=== PATIENT | male | born 1940 | race Caucasian/White ===

== ENCOUNTER 2017-06-08 05:04 | Emergency (ER) | payer MEDICARE ==
[2017-06-08] MEDS ORDERED: traMADol TAB* 50 MG PO ONE (06:32)
[2017-06-08] MEDS ORDERED: Carisoprodol TAB* 350 MG PO ONE (06:32)
[2017-06-08 07:11] VITALS: BP 110/50
--- NOTE | 2017-06-08 07:38 | ED ---
Jen Holland SooYoung, scribed for Lucas Grady MD on 06/08/17 at 0607 . Shortness of Breath - HPI Summary HPI Summary: A 76 y/o M with several co-morbidities presents to ED with c/o RUE pain, weakness and R-handed numbness ongoing for past few days. Associated sx: bilat neck pain onset today, SOB, dyspnea with exertion, mild nausea. Denies cough, CP , fall, trauma. Pt is on home O2. He took one hydrocodone to mild relief. Extremity pain has been preventing him from sleeping. 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 Pt denies taking pain medications. PCP is Dr. Haines. Takes daily aspirin. - History of Current Complaint Chief Complaint: EDShortnessOfBreath Time Seen by Provider: 06/08/17 05:46 Hx Obtained From: Patient Onset/Duration: Lasting Days Timing: Constant Dyspnea At: Exertion Aggrevating Factors: Movement - exertion - Allergy/Home Medications Allergies/Adverse Reactions: Allergies Allergy/AdvReac Type Severity Reaction Status Date / Time Oxycodone Allergy Severe See Comment Verified 07/04/16 11:18 Hydralazine Allergy Unknown UNK Verified 07/04/16 11:18 Isosorbide Nitrate Allergy Unknown UNK Verified 07/04/16 11:18 [Isosorbide] Prednisone Allergy Unknown Verified 07/04/16 11:18 Reaction Details Statins Allergy Rash Verified 06/08/17 05:13 Sulfamethoxazole Allergy Unknown Verified 07/04/16 11:18 w/Trimethoprim Reaction [From Bactrim] Details Clindamycin AdvReac Intermediate Nausea And Verified 07/04/16 11:18 Vomiting Erythromycin AdvReac Intermediate Nausea Verified 07/04/16 11:18 Atorvastatin [From Lipitor] AdvReac Unknown Dizziness Verified 07/04/16 11:18 Cephalexin [From Keflex] AdvReac Nausea And Verified 07/04/16 11:18 Vomiting Home Medications: Home Medications Amiodarone HCl [Amiodarone HCl-] 100 mg PO DAILY 06/08/17 [History Confirmed 06/16] Ferrous Sulfate TAB* 325 mg PO BID 06/08/17 [History Confirmed 06/08/17] Hydrocodone-Acetaminophen [Hydrocodone/Acetaminophen 5-325 mg] 1 tab PO BID PRN 06/08/17 [History Confirmed 06/08/17] Mexiletine CAP* [Mexitil CAP*] 200 mg PO BID 06/08/17 [History Confirmed ] PMH/Surg Hx/FS Hx/Imm Hx Previously Healthy: No Endocrine/Hematology History: Reports: Hx Diabetes - "borderline" - no medication, Hx Thyroid Disease - hyperthyroid Denies: Hx Anticoagulant Therapy, Hx Anemia Cardiovascular History: Reports: Hx Auto Implanted Cardiovert Defib, Hx Congestive Heart Failure - EF 25%, Hx Hypertension, Hx Pacemaker/ICD, Other Cardiovascular Problems/Disorders - CARDIOMYOPATHY, VENTRICULAR TECHYCARDIA, pleural effusions Denies: Hx Cardiac Arrest, Hx Congenital Heart Disease, Hx Deep Vein Thrombosis, Hx Embolism Respiratory History: Reports: Hx Chronic Obstructive Pulmonary Disease (COPD) - HOME O2 @ 3L NC, Hx Pleural Effusion, Hx Sleep Apnea, Other Respiratory Problems /Disorders - SLEEP APNEA Denies: Hx Asthma GI History: Reports: Hx Hiatal Hernia, Other GI Disorders - POLPYS Denies: Hx Cirrhosis, Hx Crohn's Disease, Hx Diverticulosis, Hx Gall Bladder Disease, Hx Gastroesophageal Reflux Disease, Hx Gastrointestinal Bleed, Hx Jaundice History: Reports: Hx Benign Prostatic Hyperplasia, Hx Chronic Renal Failure, Hx Kidney Infection, Hx Renal Disease, Other Problems/Disorders - EPIDYDIMITIS Musculoskeletal History: Reports: Hx Arthritis, Hx Gout Sensory History: Reports: Hx Contacts or Glasses Denies: Hx Glaucoma, Hx Legally Blind, Hx Macular Degeneration, Hx Deafness, Hx Hearing Aid, Other Sensory Impairments Opthamlomology History: Reports: Hx Contacts or Glasses Denies: Hx Glaucoma, Hx Legally Blind, Hx Macular Degeneration, Other Sensory Impairments Neurological History: Reports: Other Neuro Impairments/Disorders - CERVICAL SPONDALOSIS Denies: Hx Dementia, Hx Seizures Psychiatric History: Reports: Hx Anxiety, Hx Depression Denies: Hx Attention Deficit Hyperactivity Disorder, Hx Eating Disorder, Hx Inpatient Treatment, Hx Community Mental Health Tx, Hx Bipolar Disorder, Hx Substance Abuse - Cancer History Cancer Type, Location and 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 - Surgical History Surgery Procedure, Year, and Place: pacer/defibrillator; thoracentesis 2015 Hx Anesthesia Reactions: No - Immunization History Date of Tetanus Vaccine: Unk Date of Influenza Vaccine: 08/14 Infectious Disease History: No Infectious Disease History: Denies: Hx Hepatitis, Hx Human Immunodeficiency Virus (HIV), Hx of Known/ Suspected MRSA, Traveled Outside the [place] in Last 30 Days - Family History Known Family History: Positive: Cardiac Disease, Diabetes - Social History Occupation: Disabled Lives: Alone Alcohol Use: Occasionally Hx Substance Use: No Substance Use Type: Reports: None Hx Tobacco Use: Yes Smoking Status (MU): Former Smoker Type: Cigarettes Review of Systems Negative: Chest Pain Positive: Shortness Of Breath, Other - dyspnea with exertion. Negative: Cough Positive: Nausea - mild Positive: Other - pos: pain in RUE, neck pain Positive: Weakness - R hand, Numbness - in RUE/R hand All Other Systems Reviewed And Are Negative: Yes Physical Exam - Summary Physical Exam Summary: The patient is well-nourished in no acute distress and in no acute pain. The skin is warm and dry and skin color reflects adequate perfusion. HEENT: The head is normocephalic and atraumatic. The pupils are equal and reactive. The conjunctivae are clear and without drainage. Nares are patent and without drainage. Mouth reveals moist mucous membranes and the throat is without erythema and exudate. The external ears are intact. The ear canals are patent and without drainage. The tympanic membranes are intact. Neck is supple but tender with full range of motion. No nuchal rigidity. There are no carotid bruits. There is no neck vein distension. Respiratory: Chest is non-tender. Lungs are clear to auscultation and breath sounds are symmetrical and equal. Cardiovascular: Hear is regular rate and rhythm. There is no murmur or rub auscultated. There is no peripheral edema and pulses are symmetrical and equal. Abdomen: The abdomen is soft and non-tender. There are normal bowel sounds heard in all four quadrants and there is no organomegaly palpated. Musculoskeletal: There is no back pain noted. Extremities are non-tender with full range of motion except R wrist which is tender, but without swelling, and has FROM. Weakness in LUE more than RUE, no weakness noted in RUE. There is good capillary refill. There is no peripheral edema or calf tenderness elicited. Good light touch sensation. Neurological: Patient is alert and oriented to person, place and time. The patient has symmetrical motor strength in all four extremities. Cranial nerves are grossly intact. Deep tendon reflexes are symmetrical and equal in all four extremities. Psychiatric: The patient has an appropriate affect and does not exhibit any anxiety or depression. Triage Information Reviewed: Yes Vital Signs On Initial Exam: Initial Vitals Temp Pulse Resp BP Pulse Ox 97.4 F 70 18 118/63 98 06/08/17 05:09 06/08/17 05:09 06/08/17 05:09 06/08/17 05:09 06/08/17 05:09 Vital Signs Reviewed: Yes Diagnostics - Vital Signs Vital Signs Temp Pulse Resp BP Pulse Ox 06/08/17 05:30 69 108/56 100 06/08/17 05:26 69 97 06/08/17 05:25 108/49 06/08/17 05:09 97.4 F 70 18 118/63 98 - Laboratory Lab Statement: Any lab studies that have been ordered have been reviewed, and results considered in the medical decision making process. Course/Dx - Course Course Of Treatment: Pt is a 76 y/o M with multiple co-morbidities presents to ED with c/o RUE pain, weakness and R-handed numbness ongoing for past few days. Associated sx: neck pain, SOB, dyspnea with exertion. Denies cough, CP, fall, trauma. Pt is on home O2. He took one hydrocodone to mild relief. 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 Pt denies taking pain medications. PCP is Dr. Haines. Pt given Soma and Ultram in ED. - Diagnoses Differential Diagnosis/HQI/PQRI: Positive: Other - cervical neuropathy Provider Diagnoses: Right arm pain Discharge - Discharge Plan Condition: Stable Disposition: HOME Prescriptions: Carisoprodol TAB* [Soma TAB*] 350 mg PO TID PRN #30 tab MDD 3 PRN Reason: Pain traMADol TAB* [Ultram*] 50 mg PO Q6HR PRN #20 tab MDD 4 PRN Reason: pain Patient Education Materials: Carisoprodol (By mouth), Tramadol (By mouth), Arm Pain (ED) Referrals: Javi Haines MD [Primary Care Provider] - 3 Days Additional Instructions: Follow up with your primary care provider in the next three days. Please return to the ED if you experience new or worsening symptoms. The documentation as recorded by the Jen munson SooYoung accurately reflects the service I personally performed and the decisions made by me, Lucas Grady MD.
== END 2017-06-08 06:55 | disposition home or self-care (01) ==
LOC: ED 05:04
DX: M79.601 Pain in right arm (principal); E05.90 Thyrotoxicosis, unspecified without thyrotoxic crisis or storm; R73.03 Prediabetes; Z95.810 Presence of automatic (implantable) cardiac defibrillator; I50.9 Heart failure, unspecified; I10 Essential (primary) hypertension; J44.9 Chronic obstructive pulmonary disease, unspecified; M19.90 Unspecified osteoarthritis, unspecified site; F41.8 Other specified anxiety disorders; Z87.891 Personal history of nicotine dependence
CPT/HCPCS: 99283; A9270-GY

== ENCOUNTER 2017-06-12 04:45 | Emergency (ER) | payer MEDICARE ==
[2017-06-12] MEDS ORDERED: NS 0.9% 1000 ML* 1,000 ML IV SCH (05:15)
[2017-06-12 05:47] LABS: Hematocrit 28 % (42-52); Hemoglobin 9.6 g/dl (14.0-18.0); Mean Corpuscular HGB Conc 34 g/dl (31-36); Mean Corpuscular Hemoglobin 31 pg (27-31); Mean Corpuscular Volume 92 fL (80-94); Mean Platelet Volume 9 um3 (7.4-10.4); Red Blood Count 3.08 10^6/ul (4.0-5.4); Red Cell Distribution Width 17 % (10.5-15)
[2017-06-12 05:57] LABS: Digoxin 0.7 ng/ml (0.8-2.0)
[2017-06-12 05:59] LABS: ALT 57 U/L (7-52); Alkaline Phosphatase 137 U/L (34-104); BUN/Creatinine Ratio 24.3 (8-20); Blood Urea Nitrogen 63 mg/dL (6-24); C Reactive Protein 91.99 mg/L (< 5.00); CO2 Carbon Dioxide 27 mmol/L (22-32); Calcium 8.7 mg/dL (8.6-10.3); Chloride 96 mmol/L (101-111); EGFR African American 31.1 (>60); EGFR Non-African American 24.2 (>60); Globulin 3.4 g/dL (2-4); Glucose 90 mg/dL (70-100); Lipase 14 U/L (11.0-82.0); Sodium 132 mmol/L (133-145); Total Protein 6.4 g/dL (6.4-8.9)
[2017-06-12 06:06] LABS: Troponin I 0.04 ng/mL (<0.04)
[2017-06-12 06:12] LABS: Anion Gap 9 mmol/L (2-11)
--- NOTE | 2017-06-12 08:21 | RAD ---
Indication: Shortness of breath. Cardiomyopathy with 25% LEFT ventricular ejection fraction. On home oxygen. Sleep apnea. Tobacco use. Comparison: June 12, [address] August 24, 2016 chest radiograph, July 04, [address] Technique: Upright AP 0613 hours Report: Pleural parenchymal scarring at the periphery of the RIGHT mid to lower lung zone. Mild RIGHT basilar subsegmental atelectasis. Eventration of the anterior portion of the RIGHT hemidiaphragm accounts for volume loss. Small calcified granuloma at the periphery of the RIGHT upper lung zone. No suspicious focal pulmonary lesions. LEFT suprahilar lung vessel viewed on end noted. Negative for pneumothorax. RIGHT atrial, RIGHT ventricular, and coronary sinus level pacemaker leads. Unchanged cardiomegaly. Unremarkable central pulmonary vasculature and mediastinal contours. IMPRESSION: 1. Cardiomegaly without compelling evidence for pulmonary edema. 2. Moderate RIGHT basilar atelectasis with parenchymal scarring and eventration of the anterior portion of the RIGHT hemidiaphragm accounting for volume loss.
--- NOTE | 2017-06-12 08:26 | RAD ---
CLINICAL HISTORY: Abdominal pain, constipation, difficulty controlling urine COMPARISON: July 01, 2015 TECHNIQUE: Multiple contiguous axial CT scans were obtained of the abdomen and pelvis, without intravenous contrast enhancement. Coronal and sagittal multiplanar reformations are submitted for review. Oral contrast was not administered. Additionally thin section images were obtained through the lumbar spine with coronal and sagittal multiplanar reformations. FINDINGS: The study is limited by the lack of intravenous contrast. This limits evaluation of the solid organs and vasculature. LUNG BASES: There is a trace right pleural effusion. There is a small pericardial effusion. LIVER: The liver is normal in shape, size, contour, and attenuation. BILE DUCTS: There is no intrahepatic or extrahepatic biliary dilatation. GALLBLADDER: The gallbladder is normal, without pericholecystic inflammatory change. PANCREAS: The pancreas is normal, without mass or ductal dilatation. SPLEEN: Normal in size and appearance. UPPER GI TRACT: Evaluation of the gastrointestinal tract is limited by incomplete gastric distention. The upper GI tract is unremarkable. SMALL BOWEL AND MESENTERY: The small bowel is normal in contour, course, and caliber. There is no obstruction or dilatation. COLON: There is large amount of stool within the colon. There is diverticulosis of the sigmoid colon without pericolonic inflammatory change. ADRENALS: There is lobulated left adrenal mass measuring 10 Hounsfield units in attenuation most consistent with an adrenal adenoma. This is similar to the previous examination. There is mild nodularity of the right adrenal gland. KIDNEYS: The kidneys are normal in shape, size, contour, and axis. There is no hydronephrosis or nephrolithiasis. BLADDER: The bladder is collapsed and is not well evaluated PELVIC ORGANS: The prostate is diffusely enlarged. The seminal vesicles are symmetric. AORTA: There is calcific atherosclerotic disease of the abdominal aorta and its branches, without aneurysmal dilatation IVC: Unremarkable LYMPH NODES: There is no lymphadenopathy by size criteria. ABDOMINAL WALL: There are bilateral fat-containing inguinal hernias. BONES AND SOFT TISSUES: Evaluation the central canal is limited on CT technique; however, there is no appreciable canalicular mass or epidural hemorrhage. 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 There is multilevel anterolateral marginal osteophyte formation. There is diffuse facet osteoarthritis. There is diffuse loss of intervertebral disc height. There is severe narrowing of the central canal at L4-L5 and L3-L4, with moderate narrowing at L1-L2, L5-S1, and T12-L1. There is moderate to severe neural foraminal narrowing throughout the lumbar spine with relative sparing of L1-L2. OTHER: None IMPRESSION: 1. SMALL PERICARDIAL EFFUSION. 2. TRACE RIGHT PLEURAL EFFUSION. 3. DIVERTICULOSIS. 4. STABLE LEFT ADRENAL ADENOMA. 5. ATHEROSCLEROSIS. 6. BILATERAL FAT-CONTAINING HERNIAS. 7. ENLARGED PROSTATE. 8. DEGENERATIVE DISC DISEASE AND OSTEOPOROSIS, WITH DIFFUSE NARROWING OF THE CENTRAL CANAL SECONDARY TO CONGENITALLY SHORT PEDICLES. THERE IS MORE FOCAL SEVERE NARROWING OF CENTRAL CANAL AT L3-L4 AND L4-L5. THERE IS MULTILEVEL NEURAL FORAMINAL NARROWING. THE APPEARANCE IS SIMILAR TO JULY 01, 2015
[2017-06-12] MEDS ORDERED: Ondansetron INJ* 2 MG/ML VIAL IV ONE (08:30)
--- NOTE | 2017-06-12 08:47 | RAD ---
INDICATION: Right arm pain, weakness, neck pain. COMPARISON: There are no prior studies available for comparison. TECHNIQUE: Contiguous axial sections were obtained from the skull base through the C7 vertebra. Images were reconstructed in the sagittal and coronal planes. FINDINGS: The vertebra are in normal alignment. No prevertebral soft tissue swelling or fracture is seen. At the C3-C4 level there is posterior uncinate process spurring associated with a mild broad-based disc bulge giving rise to mild to moderate spinal canal stenosis. There is moderate bilateral neural foraminal narrowing. At the C4-C5 level there is posterior endplate spurring and calcification likely within the posterior longitudinal ligament. There is a small central disc protrusion. There appears to be moderate spinal canal narrowing. There is moderate neural foraminal narrowing on the right side and mild neural foraminal narrowing on the left side. At the C5-C6 level there is posterior endplate spurring associated with a broad-based disc bulge. There is moderate to severe spinal canal narrowing and moderate bilateral neural foraminal narrowing. At the C6-C7 level there is mild posterior uncinate process spurring. There appears be mild spinal canal narrowing and moderate to severe bilateral neural foraminal narrowing. IMPRESSION: 1. NO EVIDENCE FOR FRACTURE OR SUBLUXATION. 2. MODERATE TO CERVICAL SPONDYLOSIS CAUSING MODERATE TO SEVERE SPINAL CANAL NARROWING AT THE C4-C5 AND C5-C6 LEVELS. RECOMMEND MR IMAGING FOR FURTHER EVALUATION TO EXCLUDE SPINAL CORD COMPRESSION.
[2017-06-12 12:36] VITALS: BP 118/64
--- NOTE | 2017-06-12 15:50 | ED ---
Zoltan Holland Angela, scribed for Lucas Grady MD on 06/12/17 at 0725 . Progress - Progress Note Progress Note: Pt is a 76 y/o male presenting to the ED c/o constipation and bloating x4 days. This pt was a signed out from Dr. Frias, pending disposition, awaiting CT abdomen/pelvis, CT cervical spine, CT lumbar spine. CT abdomen/pelvis reveals Moderate to large amount of diffuse solid stool without bowel obstruction or inflammation. Stable adrenal lesion suspect the visual adenomas. CT cervical spine shows No fracture. Moderate central canal narrowing at the C4-5 and C5-6 levels due to bulging disc osteophyte complexes. Suggest MRI for further evaluation to exclude cord compression. Pt will be discharged to home in stable condition with a dx of constipation and degenerative disc disease. - Results/Orders Results/Orders: CT cervical spine IMPRESSION: No fracture. Moderate central canal narrowing at the C4-5 and C5-6 levels due to bulging disc osteophyte complexes. Suggest MRI for further evaluation to exclude cord compression. ED physician has reviewed this radiology report and agrees. CT abdomen/pelvis IMPRESSION: Moderate to large amount of diffuse solid stool without bowel obstruction or inflammation. Stable adrenal lesion suspect the visual adenomas. ED physician has reviewed this radiology report and agrees. CT lumbar spine IMPRESSION: 1. Small pericardial effusion 2. Trace right pleural effusion. 3. Diverticulosis 4. Stable left adrenal adenoma. 5. Atherosclerosis 6. Bilateral fat-containing hernias. 7. Enlarged prostate 8. Degenerative disc disease and osteoporosis, with diffuse narrowing of the central canal secondary to congenitally short pedicles. There is more focal severe narrowing central canal at L3-L4 and L4-L5. There is multilevel neural foraminal narrowing. The appearance is similar to July 01, 2015 ED physician has reviewed this radiology report and agrees. - Additional EKG/XRAY/Consults Comments: 0720 - EKG shows a paced rhythm Re-Evaluation - Re-Evaluation First Eval Re-Evaluation Time: 08:53 Comment: I reviewed the CT results with the pt. Second Eval Re-Evaluation Time: 09:45 Comment: Pt had a bowel movement. He is not ready to be discharged yet. Third Eval Re-Evaluation Time: 11:26 Comment: Pt is ready to be discharged home. Course/Dx - Course Course Of Treatment: Pt will be discharged to home in stable condition with a dx of constipation and degenerative disc disease. pt had a soap suds enema with moderate relief of his constipation. pt did request hydration and was administered one liter of normal saline - Diagnoses Provider Diagnoses: Constipation, Degenerative disc disease The documentation as recorded by the Zoltan munson Angela accurately reflects the service I personally performed and the decisions made by me, Lucas Grady MD.
--- NOTE | 2017-06-16 11:28 | ED ---
Mirian Holland Kyle, scribed for Mu Frias MD on 06/16/17 at 1128 . Abdominal Pain/Male - HPI Summary HPI Summary: This is a 76 yo male presenting to the ED w/ c/o of constipation and bloating that began 4 days ago. He reports that he has been taking a muscle relaxant and soma for his chronic neck pain for the past 4 days. He reports his last dose of pain medication was at least 24 hours ago. He has tried a laxative for the past 4 days without any relief of his bloated state and associated constipation. He also reports a decreased appetite. His last bowel movement was yesterday morning which he reports was bloody, hard and small in quantity. He reports the blood was bright red clots, mixed with the small amount of stool there was. His stool was black, but reports he has been taking Iron. He notes that he has also been incontinent of urine since being placed on the muscle relaxant. He also reports shortness of breath which has been acutely worse over the past 48 hours. - History of Current Complaint Stated Complaint: CONSTIPATION/POS GI BLEED Time Seen by Provider: 06/12/17 04:47 Hx Obtained From: Patient Onset/Duration: Gradual Onset Timing: Constant Severity Initially: Moderate Severity Currently: Moderate Aggravating Factor(s): Nothing Alleviating Factor(s): Nothing Associated Signs And Symptoms: Positive: Constipation - Allergies/Home Medications Allergies/Adverse Reactions: Allergies Allergy/AdvReac Type Severity Reaction Status Date / Time Oxycodone Allergy Severe See Comment Verified 06/12/17 05:00 Hydralazine Allergy Unknown UNK Verified 06/12/17 05:00 Isosorbide Nitrate Allergy Unknown UNK Verified 06/12/17 05:00 [Isosorbide] Prednisone Allergy Unknown Verified 06/12/17 05:00 Reaction Details Statins Allergy Rash Verified 06/12/17 05:00 Sulfamethoxazole Allergy Unknown Verified 06/12/17 05:00 w/Trimethoprim Reaction [From Bactrim] Details Clindamycin AdvReac Intermediate Nausea And Verified 06/12/17 05:00 Vomiting Erythromycin AdvReac Intermediate Nausea Verified 06/12/17 05:00 Atorvastatin [From Lipitor] AdvReac Unknown Dizziness Verified 06/12/17 05:00 Cephalexin [From Keflex] AdvReac Nausea And Verified 06/12/17 05:00 Vomiting PMH/Surg Hx/FS Hx/Imm Hx Endocrine/Hematology History: Reports: Hx Diabetes - "borderline" - no medication, Hx Thyroid Disease - hyperthyroid Denies: Hx Anticoagulant Therapy, Hx Anemia Cardiovascular History: Reports: Hx Auto Implanted Cardiovert Defib, Hx Congestive Heart Failure - EF 25%, Hx Hypertension, Hx Pacemaker/ICD, Other Cardiovascular Problems/Disorders - CARDIOMYOPATHY, VENTRICULAR TECHYCARDIA, pleural effusions Denies: Hx Cardiac Arrest, Hx Congenital Heart Disease, Hx Deep Vein Thrombosis, Hx Embolism Respiratory History: Reports: Hx Chronic Obstructive Pulmonary Disease (COPD) - HOME O2 @ 3L [place], Hx Pleural Effusion, Hx Sleep Apnea, Other Respiratory Problems /Disorders - SLEEP APNEA Denies: Hx Asthma GI History: Reports: Hx Hiatal Hernia, Other GI Disorders - POLPYS Denies: Hx Cirrhosis, Hx Crohn's Disease, Hx Diverticulosis, Hx Gall Bladder Disease, Hx Gastroesophageal Reflux Disease, Hx Gastrointestinal Bleed, Hx Jaundice History: Reports: Hx Benign Prostatic Hyperplasia, Hx Chronic Renal Failure, Hx Kidney Infection, Hx Renal Disease, Other Problems/Disorders - EPIDYDIMITIS Musculoskeletal History: Reports: Hx Arthritis, Hx Gout Sensory History: Reports: Hx Contacts or Glasses Denies: Hx Glaucoma, Hx Legally Blind, Hx Macular Degeneration, Hx Deafness, Hx Hearing Aid, Other Sensory Impairments Opthamlomology History: Reports: Hx Contacts or Glasses Denies: Hx Glaucoma, Hx Legally Blind, Hx Macular Degeneration, Other Sensory Impairments Neurological History: Reports: Other Neuro Impairments/Disorders - CERVICAL SPONDALOSIS Denies: Hx Dementia, Hx Seizures Psychiatric History: Reports: Hx Anxiety, Hx Depression Denies: Hx Attention Deficit Hyperactivity Disorder, Hx Eating Disorder, Hx Inpatient Treatment, Hx Community Mental Health Tx, Hx Bipolar Disorder, Hx Substance Abuse - Cancer History Cancer Type, Location and 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 - Surgical History Surgery Procedure, Year, and Place: pacer/defibrillator; thoracentesis 2014 Hx Anesthesia Reactions: No - Immunization History Date of Tetanus Vaccine: Unk Date of Influenza Vaccine: 08/14 Infectious Disease History: Denies: Hx Hepatitis, Hx Human Immunodeficiency Virus (HIV), Hx of Known/ Suspected MRSA - Family History Known Family History: Positive: Cardiac Disease, Diabetes - Social History Alcohol Use: Occasionally Hx Substance Use: No Substance Use Type: Reports: None Hx Tobacco Use: Yes Smoking Status (MU): Former Smoker Type: Cigarettes Review of Systems Negative: Fever, Chills Negative: Chest Pain Positive: Shortness Of Breath Positive: Abdominal Pain, Other - constipation, bloody bowel movements. Negative: Vomiting, Nausea All Other Systems Reviewed And Are Negative: Yes Physical Exam - Summary Physical Exam Summary: General: well-appearing, no pain distress Skin: warm, color reflects adequate perfusion, dry Head: normal Eyes: EOMI, YOUNG ENT: normal Neck: supple, nontender Respiratory: CTA, breath sounds present Cardiovascular: RRR Abdomen: soft, nontender Bowel: present Musculoskeletal: normal, strength/ROM intact Neurological: normal, sensory/motor intact, A&O x3 Psychological: affect/mood appropriate Triage Information Reviewed: Yes Vital Signs On Initial Exam: Initial Vitals Temp Pulse Resp BP Pulse Ox 99 F 80 16 107/49 98 06/12/17 05:01 06/12/17 05:01 06/12/17 05:01 06/12/17 05:01 06/12/17 05:01 Vital Signs Reviewed: Yes Diagnostics - Vital Signs Vital Signs Temp Pulse Resp BP Pulse Ox 06/12/17 12:35 98.7 F 80 20 118/64 06/12/17 12:00 67 102/52 100 06/12/17 11:30 70 104/49 100 06/12/17 11:00 72 106/53 100 06/12/17 10:30 72 109/58 100 06/12/17 10:00 71 104/51 100 06/12/17 09:54 77 89 06/12/17 09:30 112/50 06/12/17 09:21 72 99 06/12/17 09:00 71 104/49 99 06/12/17 08:59 72 99 06/12/17 08:58 107/50 06/12/17 08:56 73 16 108/52 99 06/12/17 05:01 99 F 80 16 107/49 98 - Laboratory Lab Results: Lab Results 06/12/17 06/12/17 06/12/17 Range/Units 05:25 05:25 05:25 WBC (3.5-10.8) 10^3/ul RBC (4.0-5.4) 10^6/ul Hgb (14.0-18.0) g/dl Hct (42-52) % MCV (80-94) fL MCH (27-31) pg MCHC (31-36) g/dl RDW (10.5-15) % Plt Count (150-450) 10^3/ul MPV (7.4-10.4) um3 Neut % (Auto) (38-83) % Lymph % (Auto) (25-47) % [place] % (Auto) (1-9) % Eos % (Auto) (0-6) % Baso % (Auto) (0-2) % Absolute Neuts (auto) (1.5-7.7) 10^3/ul Absolute Lymphs (auto) (1.0-4.8) 10^3/ul Absolute Monos (auto) (0-0.8) 10^3/ul Absolute Eos (auto) (0-0.6) 10^3/ul Absolute Basos (auto) (0-0.2) 10^3/ul Absolute Nucleated RBC 10^3/ul Nucleated RBC % INR (Anticoag Therapy) 0.98 (0.89-1.11) APTT 27.7 (26.0-36.3) seconds Sodium 132 L (133-145) mmol/L Potassium TNP Chloride 96 L (101-111) mmol/L Carbon Dioxide 27 (22-32) mmol/L Anion Gap 9 (2-11) mmol/L BUN 63 H (6-24) mg/dL Creatinine 2.59 H (0.67-1.17) mg/dL Est GFR ( Amer) 31.1 (>60) Est GFR (Non-Af Amer) 24.2 (>60) BUN/Creatinine Ratio 24.3 H (8-20) Glucose 90 (70-100) mg/dL Lactic Acid (0.5-2.0) mmol/L Calcium 8.7 (8.6-10.3) mg/dL Total Bilirubin 1.30 H (0.2-1.0) mg/dL AST TNP ALT 57 H (7-52) U/L Alkaline Phosphatase 137 H (34-104) U/L Troponin I 0.04 H* (<0.04) ng/mL C-Reactive Protein 91.99 H (< 5.00) mg/L B-Natriuretic Peptide 611 H ( - 100) pg/mL Total Protein 6.4 (6.4-8.9) g/dL Albumin 3.0 L (3.2-5.2) g/dL Globulin 3.4 (2-4) g/dL Albumin/Globulin Ratio 0.9 L (1-3) Lipase 14 (11.0-82.0) U/L Digoxin 0.7 L (0.8-2.0) ng/ml 06/12/17 06/12/17 06/12/17 Range/Units 05:25 05:25 06:37 WBC 9.0 (3.5-10.8) 10^3/ul RBC 3.08 L (4.0-5.4) 10^6/ul Hgb 9.6 L (14.0-18.0) g/dl Hct 28 L (42-52) % MCV 92 (80-94) fL MCH 31 (27-31) pg MCHC 34 (31-36) g/dl RDW 17 H (10.5-15) % Plt Count 138 L (150-450) 10^3/ul MPV 9 (7.4-10.4) um3 Neut % (Auto) 85.8 H (38-83) % Lymph % (Auto) 6.2 L (25-47) % [place] % (Auto) 7.1 (1-9) % Eos % (Auto) 0.5 (0-6) % Baso % (Auto) 0.4 (0-2) % Absolute Neuts (auto) 7.7 (1.5-7.7) 10^3/ul Absolute Lymphs (auto) 0.6 L (1.0-4.8) 10^3/ul Absolute Monos (auto) 0.6 (0-0.8) 10^3/ul Absolute Eos (auto) 0 (0-0.6) 10^3/ul Absolute Basos (auto) 0 (0-0.2) 10^3/ul Absolute Nucleated RBC 0 10^3/ul Nucleated RBC % 0 INR (Anticoag Therapy) (0.89-1.11) APTT (26.0-36.3) seconds Sodium (133-145) mmol/L Potassium 4.8 Chloride (101-111) mmol/L Carbon Dioxide (22-32) mmol/L Anion Gap (2-11) mmol/L BUN (6-24) mg/dL Creatinine (0.67-1.17) mg/dL Est GFR ( Amer) (>60) Est GFR (Non-Af Amer) (>60) BUN/Creatinine Ratio (8-20) Glucose (70-100) mg/dL Lactic Acid 0.9 (0.5-2.0) mmol/L Calcium (8.6-10.3) mg/dL Total Bilirubin (0.2-1.0) mg/dL AST 32 ALT (7-52) U/L Alkaline Phosphatase (34-104) U/L Troponin I (<0.04) ng/mL C-Reactive Protein (< 5.00) mg/L B-Natriuretic Peptide ( - 100) pg/mL Total Protein (6.4-8.9) g/dL Albumin (3.2-5.2) g/dL Globulin (2-4) g/dL Albumin/Globulin Ratio (1-3) Lipase (11.0-82.0) U/L Digoxin (0.8-2.0) ng/ml Result Diagrams: 06/12/17 05:25 06/12/17 06:37 Diagnostic Studies Comment: HGB is lower than 3 months ago. Cr is stable. Troponin is elevated, but this chronic. CRP has been elevated in the past as well. BNP is also elevated, relatively higher than priors. Lab Statement: Any lab studies that have been ordered have been reviewed, and results considered in the medical decision making process. - Radiology CXR Xray Interpretation: Positive (See Comments) - Chronic R pleural effusion. Mild pulmonary vascular congestion. Radiology Interpretation Completed By: ED Physician Abdominal Pain Fem Course/Dx - Course Course Of Treatment: Disposition pending at shift change - Diagnoses Provider Diagnoses: Constipation, Degenerative disc disease Discharge - Discharge Plan Condition: Stable Disposition: OTHER Discharge Disposition Comment: Pending CTs - sign out to Dr. Grady. Patient Education Materials: Constipation (ED), Degenerative Disc Disease (ED) Referrals: Javi Haines MD [Primary Care Provider] - Additional Instructions: Please follow up with your primary care provider. The documentation as recorded by the Mirian munson Kyle accurately reflects the service I personally performed and the decisions made by , Mu Frias MD.
== END 2017-06-12 12:35 ==
LOC: ED 04:45
DX: K59.00 Constipation, unspecified (principal); M51.34 Other intervertebral disc degeneration, thoracic region; R06.2 Wheezing; R06.02 Shortness of breath; Z87.891 Personal history of nicotine dependence
CPT/HCPCS: 36415; 71010; 72125; 72131; 74176; 80053; 80162; 83605; 83690; 83880; 84484; 85025; 85610; 85730; 86140; 93005; 96361; 96374; 99284; J2405

== ENCOUNTER 2017-06-22 05:53 | Inpatient (IN) | payer MEDICARE ==
[2017-06-22] MEDS ORDERED: NS 0.9% 1000 ML* 1,000 ML IV ONE (06:16)
--- NOTE | 2017-06-22 06:47 | ED ---
Argelia Holland Rebecca, scribed for DavyJose on 06/22/17 at 0617 . Abdominal Pain/Male - HPI Summary HPI Summary: Pt is a 76 y/o M BIBA who presents to ED c/o abdominal pain and distention. Sx have been present for "several days." Associated pain is diffuse and and currently moderate, ranked 5/10. Sx aggravated and alleviated by nothing. Additionally c/o constipation and generalized weakness. Denies vomiting, fever, CP. Has tried drinking prune juice and taking an Rx from Dr. Haines for constipation which is not improving sx. Uses O2 at home. - History of Current Complaint Chief Complaint: EDAbdPain Stated Complaint: CONSTIPATION,WEAK Time Seen by Provider: 06/22/17 06:11 Hx Obtained From: Patient Onset/Duration: Lasting Days - "several" days, Still Present Severity Currently: Moderate Pain Intensity: 5 Pain Scale Used: 0-10 Numeric Location: Diffuse Radiates: No Aggravating Factor(s): Nothing Alleviating Factor(s): Nothing Associated Signs And Symptoms: Positive: Constipation, Other - abdominal distention. Negative: Fever, Chest Pain, Vomiting - Allergies/Home Medications Allergies/Adverse Reactions: Allergies Allergy/AdvReac Type Severity Reaction Status Date / Time Oxycodone Allergy Severe See Comment Verified 06/12/17 05:00 Hydralazine Allergy Unknown UNK Verified 06/12/17 05:00 Isosorbide Nitrate Allergy Unknown UNK Verified 06/12/17 05:00 [Isosorbide] Prednisone Allergy Unknown Verified 06/12/17 05:00 Reaction Details Statins Allergy Rash Verified 06/12/17 05:00 Sulfamethoxazole Allergy Unknown Verified 06/12/17 05:00 w/Trimethoprim Reaction [From Bactrim] Details Clindamycin AdvReac Intermediate Nausea And Verified 06/12/17 05:00 Vomiting Erythromycin AdvReac Intermediate Nausea Verified 06/12/17 05:00 Atorvastatin [From Lipitor] AdvReac Unknown Dizziness Verified 06/12/17 05:00 Cephalexin [From Keflex] AdvReac Nausea And Verified 06/12/17 05:00 Vomiting PMH/Surg Hx/FS Hx/Imm Hx Endocrine/Hematology History: Reports: Hx Diabetes - "borderline" - no medication, Hx Thyroid Disease - hyperthyroid Denies: Hx Anticoagulant Therapy, Hx Anemia Cardiovascular History: Reports: Hx Auto Implanted Cardiovert Defib, Hx Congestive Heart Failure - EF 25%, Hx Hypertension, Hx Pacemaker/ICD, Other Cardiovascular Problems/Disorders - CARDIOMYOPATHY, VENTRICULAR TECHYCARDIA, pleural effusions Denies: Hx Cardiac Arrest, Hx Congenital Heart Disease, Hx Deep Vein Thrombosis, Hx Embolism Respiratory History: Reports: Hx Chronic Obstructive Pulmonary Disease (COPD) - HOME O2 @ 3L [place], Hx Pleural Effusion, Hx Sleep Apnea, Other Respiratory Problems /Disorders - SLEEP APNEA Denies: Hx Asthma GI History: Reports: Hx Hiatal Hernia, Other GI Disorders - POLPYS Denies: Hx Cirrhosis, Hx Crohn's Disease, Hx Diverticulosis, Hx Gall Bladder Disease, Hx Gastroesophageal Reflux Disease, Hx Gastrointestinal Bleed, Hx Jaundice History: Reports: Hx Benign Prostatic Hyperplasia, Hx Chronic Renal Failure, Hx Kidney Infection, Hx Renal Disease, Other Problems/Disorders - EPIDYDIMITIS Musculoskeletal History: Reports: Hx Arthritis, Hx Gout Sensory History: Reports: Hx Contacts or Glasses Denies: Hx Glaucoma, Hx Legally Blind, Hx Macular Degeneration, Hx Deafness, Hx Hearing Aid, Other Sensory Impairments Opthamlomology History: Reports: Hx Contacts or Glasses Denies: Hx Glaucoma, Hx Legally Blind, Hx Macular Degeneration, Other Sensory Impairments Neurological History: Reports: Other Neuro Impairments/Disorders - CERVICAL SPONDALOSIS Denies: Hx Dementia, Hx Seizures Psychiatric History: Reports: Hx Anxiety, Hx Depression Denies: Hx Attention Deficit Hyperactivity Disorder, Hx Eating Disorder, Hx Inpatient Treatment, Hx Community Mental Health Tx, Hx Bipolar Disorder, Hx Substance Abuse - Cancer History Cancer Type, Location and 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 - Surgical History Surgery Procedure, Year, and Place: pacer/defibrillator; thoracentesis 2014 Hx Anesthesia Reactions: No - Immunization History Date of Tetanus Vaccine: Unk Date of Influenza Vaccine: 08/14 Infectious Disease History: Unable to Obtain/Confirm Infectious Disease History: Denies: Hx Hepatitis, Hx Human Immunodeficiency Virus (HIV), Hx of Known/ Suspected MRSA, Traveled Outside the [place] in Last 30 Days - Family History Known Family History: Positive: Cardiac Disease, Diabetes - Social History Alcohol Use: Occasionally Hx Substance Use: No Substance Use Type: Reports: None Hx Tobacco Use: Yes Smoking Status (MU): Former Smoker Type: Cigarettes Review of Systems Positive: Other - Generalized weakness. Negative: Fever Negative: Chest Pain Positive: Abdominal Pain - diffuse, Other - constipation, abdominal distention. Negative: Vomiting All Other Systems Reviewed And Are Negative: Yes Physical Exam - Summary Physical Exam Summary: Appearance: Well appearing, no pain distress Skin: warm, dry, reflects adequate perfusion Head/face: normal Eyes: EOMI, YOUNG ENT: normal Neck: supple, nontender Respiratory: CTA, breath sounds present Cardiovascular: RRR, pulses symmetrical Abdomen: diffuse abdominal pain, soft, distended Bowel: present Musculoskeletal: normal, strength/ROM intact Neuro: normal, sensory motor intact, A&Ox3 Triage Information Reviewed: Yes Vital Signs On Initial Exam: Initial Vitals Temp Pulse Resp BP Pulse Ox 98.3 F 77 12 100/47 100 06/22/17 06:00 06/22/17 06:00 06/22/17 06:00 06/22/17 06:00 06/22/17 06:00 Vital Signs Reviewed: Yes Diagnostics - Vital Signs Vital Signs Temp Pulse Resp BP Pulse Ox 06/22/17 06:00 98.3 F 77 12 100/47 100 - Laboratory Lab Statement: Any lab studies that have been ordered have been reviewed, and results considered in the medical decision making process. Abdominal Pain Fem Course/Dx - Course Assessment/Plan: Pt is a 76 y/o M BIBA who presents to ED c/o abdominal pain and distention for "several days." Associated pain is diffuse and and currently moderate, ranked 5/10. Additionally c/o constipation and generalized weakness. Denies vomiting, fever, CP. Has tried drinking prune juice and taking an Rx from Dr. Haines for constipation which is not improving sx. Uses O2 at home. In the ED course, pt receive fluids. Pt will be signed out, pending disposition, awaiting CT Abd/Pel. - Diagnoses Provider Diagnoses: Abdominal pain, Constipation Discharge - Discharge Plan Condition: Stable Disposition: OTHER Discharge Disposition Comment: Pt will be signed out, pending disposition, awaiting CT Abd/Pel Referrals: Javi Haines MD [Primary Care Provider] - The documentation as recorded by the Argelia munson Rebecca accurately reflects the service I personally performed and the decisions made by , Jose Bhatti.
[2017-06-22 07:24] LABS: Hematocrit 27 % (42-52); Hemoglobin 8.8 g/dl (14.0-18.0); Mean Corpuscular HGB Conc 33 g/dl (31-36); Mean Corpuscular Hemoglobin 31 pg (27-31); Mean Corpuscular Volume 93 fL (80-94); Mean Platelet Volume 9 um3 (7.4-10.4); Red Blood Count 2.86 10^6/ul (4.0-5.4); Red Cell Distribution Width 17 % (10.5-15); White Blood Count 7.2 10^3/ul (3.5-10.8)
[2017-06-22 07:36] LABS: ALT 15 U/L (7-52); AST 12 U/L (13-39); Albumin 3.1 g/dL (3.2-5.2); Alkaline Phosphatase 84 U/L (34-104); Anion Gap 8 mmol/L (2-11); BUN/Creatinine Ratio 22.6 (8-20); Blood Urea Nitrogen 63 mg/dL (6-24); CO2 Carbon Dioxide 30 mmol/L (22-32); Calcium 8.2 mg/dL (8.6-10.3); Chloride 93 mmol/L (101-111); EGFR African American 28.5 (>60); EGFR Non-African American 22.2 (>60); Globulin 3.4 g/dL (2-4); Glucose 120 mg/dL (70-100); Lipase < 10 U/L (11.0-82.0); Potassium 4.3 mmol/L (3.5-5.0); Sodium 131 mmol/L (133-145); Total Protein 6.5 g/dL (6.4-8.9)
[2017-06-22 07:38] LABS: Troponin I 0.03 ng/mL (<0.04)
[2017-06-22 09:55] LABS: Urine Bilirubin Negative (Negative); Urine Glucose Negative (Negative); Urine Nitrite Negative (Negative)
--- NOTE | 2017-06-22 09:55 | RAD ---
Edited for charges. INDICATION: Constipation, bloating. General weakness. COMPARISON: June 12, 2017 CT. TECHNIQUE: Multidetector CT images were obtained from the lung bases to the ischial tuberosities. Oral contrast administered. Assessment of the visceral limited without IV contrast. REPORT: Arms down positioning lowers image quality. Cardiomegaly. RIGHT atrial , RIGHT ventricular, and coronary sinus pacemaker leads. Physiologic small volume of pericardial fluid. Minimal pleural effusions. Unchanged pleural parenchymal scarring at the RIGHT lung base. 20 cm cephalocaudal liver. No focal hepatic lesions evident within limits of noncontrast exam. No CT abnormality of the gallbladder. Negative for biliary dilatation. Moderately atrophic pancreas. Enlarged 17.6 cm spleen. Negative for CT abnormality of the upper GI or small bowel. While the appendix is not discretely visualized, there is no inflammatory change in the right lower quadrant or region of the tip of the cecum to suggest presence of an acute inflammatory process. Moderate stool in the colon. Severe colonic diverticulosis most marked at the sigmoid colon without findings of acute diverticulitis. Negative for ascites, free air. Small fat-containing probable direct RIGHT inguinal hernia without inflammatory change. 2.7 x 3.2 cm LEFT adrenal nodule is grossly unchanged compared with the July 01, 2015 exam strongly favoring benign etiology. Foci of low density within the lesion favor a benign lipid rich adenoma. Unremarkable RIGHT adrenal gland. Moderate bilateral renal cortical atrophy. No suspicious focal renal lesions, stones, or hydronephrosis. Unremarkable ureters and partially distended urinary bladder. Enlarged prostate protrudes into the floor of the urinary bladder. Symmetric seminal vesicles. Negative for lymphadenopathy. Peripheral atherosclerotic calcification. Negative for aortoiliac aneurysm. Physiologic distention of the IVC. Polyarticular degenerative arthropathy. Negative for suspicious focal osseous lesions. IMPRESSION: 1. Cardiomegaly. Minimal bilateral pleural effusions with interval decrease. 2. Unchanged hepatosplenomegaly. 3. Severe colonic diverticulosis without findings of acute diverticulitis. Only moderate stool present in the colon. Negative for bowel obstruction. 4. Negative for ascites. 5. 2.7 x 3.2 cm LEFT adrenal nodule is likely benign given only minimal interval change compared with the July 01, 2015 exam. 6. Negative for lymphadenopathy. MTDD
[2017-06-22] MEDS ORDERED: Polyethylene Glycol 3350* 17 GM PACKET PO PRN (10:01)
[2017-06-22] MEDS ORDERED: Magnesium CITRATE* 300 ML BTL PO ONE (10:01)
--- NOTE | 2017-06-22 10:32 | RAD ---
Indication: Shortness of breath. Generalized weakness. Constipation. Chronic obstructive pulmonary disease on home oxygen. Comparison: Abdomen CT of the same date and July 04, [address] Technique: Upright AP 0935 hours Report: Cardiomegaly. RIGHT atrial, RIGHT ventricular, and coronary sinus level pacemaker leads. Mildly prominent central pulmonary vasculature with cephalization. Chronic RIGHT basilar pleural parenchymal scarring. Diffuse mild prominence of interstitial markings in the lower lung zones. Small RIGHT dependent pleural effusion based on correlation with abdomen CT. IMPRESSION: The constellation of findings favors mild pulmonary vascular congestion and interstitial edema. Minimal RIGHT pleural effusion.
[2017-06-22] MEDS ORDERED: Bisacodyl SUPP* 10 MG SUPP PR PRN (12:04)
[2017-06-22] MEDS ORDERED: Mineral Oil ENEMA* 1 BOTTLE PR PRN (12:04)
[2017-06-22] MEDS: Heparin VIAL(*) 5000 UNITS/ML VIAL (FIVE THOUSAND) SUBCUT SCH ×2 (14:28→22:44)
[2017-06-22] MEDS ORDERED: HYDROcodone/ACETAMIN 5-325 MG* 1 TAB PO PRN ×2 (20:35→20:38)
[2017-06-22] MEDS ORDERED: traMADol TAB* 50 MG PO PRN (20:35)
--- NOTE | 2017-06-22 22:23 | HP ---
CC: Dr. Haines* [facility] MEDICINE HISTORY AND PHYSICAL: DATE OF ADMISSION: 06/22/17 PRIMARY CARE PHYSICIAN: Dr. Haines. ATTENDING PHYSICIAN: Leonel Negrete M.D.* (dictation provided by Neva Grady NP) CHIEF COMPLAINT: Constipation and shortness of breath. HISTORY OF PRESENT ILLNESS: Mr. Carvalho is a 76-year-old male with a complex past medical history including ischemic cardiomyopathy with ejection fraction of 20% to 25%, chronic kidney disease stage 3, COPD, hyperthyroidism, and history of V-tach who presents to the hospital today with concern for constipation and shortness of breath. Mr. Carvalho states that his problems began when he had increased pain to his neck. He has a history of chronic pain in the neck with radiation down in to the arms. He states that this is secondary to bone spurs and that he is not a candidate for surgery. He was seen in the emergency room on 06/18/17. At that time, he was given Soma and tramadol and was encouraged to follow up with Dr. Haines. Per the patient's report, he did and it seems perhaps that the patient was given hydrocodone for pain relief. He was seen again in the ER on 06/12/17. Again, complaining of constipation and bloating and had not been responsive to laxatives at home. He had an abdomen and pelvis CT at that point, which showed no obstruction or significant constipation and he was discharged to home. I will note he did receive a cervical spine CT at that time, which showed moderate cervical spondylosis causing [id number] spinal canal narrowing at C4-5 and C5-6 levels. He also had a lumbar spine CT, which showed no other acute changes. The patient states that he has continued to take hydrocodone for pain and been working with Dr. Haines to alleviate his constipation. He states he did have a bowel movement 2 days ago and that seemed to relieve it a bit, but that he has had persistent abdominal distension and discomfort and that the pressure from his abdomen is making it difficult for him to breathe. He ultimately called the EMS , was brought back to the emergency room today. He has had no fevers, no chills. He has not been taking in much oral intake due to the feeling of fullness. He has had no chest pain. He has had shortness of breath. He has had no nausea or vomiting. In the emergency room, Mr. Carvalho had labs, which were basically consistent with previous showing a hemoglobin of 8.8, no leukocytosis. He has elevated BUN and creatinine, but they are at baseline. He has a normal troponin. Urine shows no evidence of infection. He went on for a repeat abdomen and pelvis CT, which showed only moderate stool. PAST MEDICAL HISTORY: 1. Chronic systolic congestive heart failure with last known EF of 20% to 25%, though the patient states it is improved since then. 2. CKD stage 3. 3. COPD. 4. Hyperthyroidism. 5. History of ventricular tachycardia with ICD. 6. Benign prostatic hypertrophy. 7. Gout. 8. Obstructive sleep apnea. 9. Psoriasis. 10. Cervical spondylosis. 11. History of squamous cell carcinoma. 12. Hypertension. 13. Hiatal hernia. 14. Depression. MEDICATIONS: Outpatient are: 1. Allopurinol 100 mg p.o. daily. 2. Amiodarone 100 mg p.o. daily. 3. Soma 350 mg p.o. t.i.d. 4. Carvedilol 12.5 mg p.o. b.i.d. 5. Digoxin 0.125 mg p.o. Saturday, Saturday, and Saturday. 6. Doxazosin 4 mg p.o. at bedtime. 7. Ferrous sulfate 325 mg p.o. b.i.d. 8. Finasteride 5 mg p.o. at bedtime. 9. Folic acid 1 mg p.o. daily. 10. Hydrocodone with acetaminophen 1 to 2 tablets p.o. q.6 hours p.r.n. 11. Ipratropium 0.03% nasally b.i.d. 12. Lactulose 10 g p.o. b.i.d. p.r.n. 13. Lisinopril 7.5 mg p.o. daily. 14. Methimazole 10 mg p.o. q.i.d. 15. Metolazone 2.5 mg p.o. daily as needed for weight gain and fluid overload. 16. Mexiletine 200 mg p.o. t.i.d. 17. Multivitamin with mineral 1 tab p.o. daily. 18. Spironolactone 12.5 mg p.o. Saturday, Saturday, and Saturday. 19. Torsemide 30 mg p.o. daily. 20. The patient thinks he is no longer on prednisone, but is listed per his pharmacy at 10 mg p.o. daily. 21. Tramadol 50 mg p.o. q.6 hours p.r.n. ALLERGIES: OXYCODONE, HYDRALAZINE, ISOSORBIDE, PREDNISONE, STATIN, SULFAMETHOXAZOLE with TRIMETHOPRIM, CLINDAMYCIN, ERYTHROMYCIN, ATORVASTATIN, and KEFLEX. FAMILY HISTORY: Mother at 78 from emphysema and heart failure. Father from gastric cancer. He has a sister, has a nonischemic cardiomyopathy and also has an LVAD. SOCIAL HISTORY: The patient lives alone. He quit smoking in 2010. He smoked for over 30 years. There was no report of alcohol use. He does not have a healthcare proxy. Code status is full code. REVIEW OF SYSTEMS: A 14-point review of systems was completed with Mr. Carvalho and all those not mentioned above were negative. PHYSICAL EXAMINATION GENERAL: Mr. Carvalho is lying in the bed. He is in no acute distress. VITAL SIGNS: Temperature 97.9, pulse rate 75, respiratory rate 20, O2 saturation 100% on 3.5 L nasal cannula, blood pressure 103/50. HEART: S1, S2. No murmur, rub, or gallop and regular. LUNGS: Actually clear bilaterally with no accessory muscle use and good aeration. ABDOMEN: Protuberant, it is soft. Bowel sounds are hyperactive. There is some minimal pain to palpation, but no rebound. No guarding. EXTREMITIES: +1 edema in the bilateral lower extremities. SKIN: Intact. NEURO: He is alert, he is oriented x3. He moves all extremities equally. There is no facial asymmetry or focal weakness. Extraocular movements are intact. LABORATORY DATA/DIAGNOSTIC STUDIES: WBC 7.2, hemoglobin 8.8, hematocrit 27, platelet count 176. INR 1.04. Sodium 131, potassium 4.3, chloride 93, serum bicarbonate 30, BUN 63, creatinine 2.79, glucose 120, lactic acid 0.8. Troponin 0.03, BNP 692, lipase less than 10. Urine shows no evidence of infection. Abdomen and pelvis CT from today is read as follows: "Cardiomegaly, minimal bilateral pleural effusions with interval decrease, unchanged hepatosplenomegaly , severe colonic diverticulosis without findings of acute diverticulitis, only moderate stool present in the colon. Negative for bowel obstruction. Negative for ascites. A 2.7 x 3.2 cm left adrenal nodule, it is likely benign given only minimal interval change compared with 07/01/2015 exam, negative for lymphadenopathy. ASSESSMENT: Mr. Carvalho is a 76-year-old male with complicated past medical history including an ischemic cardiomyopathy with last known ejection fraction here 20% to 25%, although the patient reports it has improved as well as hypertension, obstructive sleep apnea, V-tach with ICD who presents today to the hospital with concern for constipation and shortness of breath. Our plan is for observation in the hospital for the followin. Constipation: Again, there is no obstruction seen on the CT of the abdomen and only a moderate amount of stool. I plan to initiate an aggressive bowel regimen for him, which has already been started in the emergency room. The patient will have intravenous fluids. I suspect his constipation is related to his narcotic use and will limit that if possible, although the patient does have pain from his neck radiating into his right arm. 2. History of nonischemic cardiomyopathy: The patient does not appear to be in any acute failure at this point. He has minimal lower extremity edema, and I would suspect that he is actually a bit dehydrated. I plan to continue his home regimen of torsemide, and we will watch closely for any signs of fluid overload. 3. Anemia: baseline, monitor. 4. Acute kidney injury: baseline, plan to monitor. 5. Hyperthyroidism: Continue home medications. 6. Hypertension: Continue lisinopril with carvedilol. 7. Ventricular tachycardia: Continue amiodarone. 8. Depression: Continue sertraline. 9. DVT prophylaxis with heparin subcu. 10. Code status is full code. This was reviewed with the patient at the bedside. TIME SPENT: Approximately 60 minutes was spent on the admission of this patient , more than half the time spent with the patient at the bedside reviewing the events leading up to this hospitalization, performing the physical examination, and reviewing my plan of care. NEVA GRADY, RED [id number]/CPS #: [id number] SADAF
[2017-06-22] MEDS: MEXILETINE 200 MG PO SCH (22:43)
[2017-06-22] MEDS: Carvedilol TAB* 6.25 MG PO SCH (22:44)
[2017-06-22] MEDS: Ferrous Sulfate TAB* 325 MG PO SCH (22:44)
[2017-06-22] MEDS: Finasteride TAB* 5 MG PO SCH (22:44)
[2017-06-22] MEDS: Doxazosin TAB* 2 MG PO SCH (22:44)
[2017-06-22] MEDS: Methimazole TAB* 5 MG PO SCH (22:44)
[2017-06-23] MEDS: Heparin VIAL(*) 5000 UNITS/ML VIAL (FIVE THOUSAND) SUBCUT SCH ×3 (06:03→21:19)
[2017-06-23 07:13] LABS: Hematocrit 24 % (42-52); Hemoglobin 8.1 g/dl (14.0-18.0); Mean Corpuscular HGB Conc 34 g/dl (31-36); Mean Corpuscular Hemoglobin 31 pg (27-31); Mean Corpuscular Volume 92 fL (80-94); Mean Platelet Volume 8 um3 (7.4-10.4); Red Cell Distribution Width 17 % (10.5-15); White Blood Count 6.3 10^3/ul (3.5-10.8)
[2017-06-23 07:31] LABS: EGFR African American 31.5 (>60); EGFR Non-African American 24.5 (>60); Potassium 4.1 mmol/L (3.5-5.0)
--- NOTE | 2017-06-23 08:23 | PN ---
Subjective Date of Service: 06/23/17 Interval History: Mr. Carvalho has had a few small bowel movements but feels that his belly is still very distended and impeding his breathing. He denies other complaint. He denies chest pain. He denies nausea. He is tolerating oral intake well. He was noted to ambulate to the bathroom independently with his O2 though he was unsteady on his feet when initially trying to get up from the chair. Objective Active Medications: Hydrocodone Bitart/Acetaminophen ([place] 5-325 Tab*) 1 tab PO Q6H PRN Hydrocodone Bitart/Acetaminophen ([place] 5-325 Tab*) 2 tab PO Q4H PRN Allopurinol (Zyloprim Tab*) 100 mg PO DAILY FAY Amiodarone HCl (Cordarone Tab*) 100 mg PO DAILY FAY Bisacodyl (Dulcolax Supp*) 10 mg [place] DAILY PRN Carisoprodol (Soma Tab*) 350 mg PO TID PRN Carvedilol (Coreg Tab*) 12.5 mg PO BID FAY Digoxin (Lanoxin Tab*) 0.125 mg PO MOWEFR FAY Doxazosin Mesylate (Cardura Tab*) 4 mg PO BEDTIME FAY Ferrous Sulfate (Ferrous Sulfate Tab*) 325 mg PO BID FAY Finasteride (Proscar Tab*) 5 mg PO BEDTIME FAY Folic Acid (Folvite Tab*) 1 mg PO DAILY FAY Heparin Sodium (Porcine) (Heparin Vial(*)) 5,000 units SUBCUT Q8HR FAY Lactulose (Lactulose*) 30 ml PO TID PRN Lisinopril (Prinivil Tab*) 7.5 mg PO DAILY FAY Methimazole (Tapazole Tab*) 10 mg PO QID FAY Mexiletine HCl (Mexitil Cap*) 200 mg PO TID FAY Mineral Oil (Fleet Mineral Oil Enema*) 1 bottle AK DAILY PRN Multivitamins ( Vitamin Tab*) 1 tab PO DAILY FAY Polyethylene Glycol/Electrolytes (Miralax*) 17 gm PO DAILY PRN Spironolactone (Aldactone Tab*) 12.5 mg PO MOWEFR FAY Torsemide (Demadex*) 30 mg PO DAILY FAY Tramadol HCl (Ultram*) 50 mg PO Q12HR PRN Vital Signs: Temp Pulse Resp BP Pulse Ox 99.0 F 73 16 96/58 100 09/24/17 07:22 06/23/17 07:22 06/23/17 07:22 06/23/17 07:22 06/23/17 07:22 Oxygen Devices in Use Now: Nasal Cannula Appearance: Male sitting up in chair in NAD Eyes: No Scleral Icterus Ears/Nose/Mouth/Throat: Mucous Membranes Moist Neck: Trachea Midline Respiratory: Symmetrical Chest Expansion and Respiratory Effort, Clear to Auscultation Cardiovascular: NL Sounds; No Murmurs; No JVD, - - +1 edema B LEs Abdominal: NL Sounds; No Tenderness; No Distention Lymphatic: No Cervical Adenopathy Skin: No Rash or Ulcers Neurological: Alert and Oriented x 3, NL Muscle Strength and Tone Nutrition: Taking PO's Result Diagrams: 06/23/17 06:48 06/23/17 06:48 Assess/Plan/Problems-Billing Assessment: Mr. Carvalho is a 76 yo male with a PMH of ischemic cardiomyopathy and EF 25-30% who was admitted on 06/22/17 with SOB felt to be secondary to constipation with abdominal distention. - Patient Problems (1) Shortness of breath Comment: - Essentially unchanged. - No evidence of infection of CHF exacerbation. - Suspect secondary to abdominal distention with constipation from narcotics for neck pain. (2) Constipation Comment: - Having BMs but continues to feel that his abdomen is very distended. - Add simethicone to multi-drug cocktail to promote regular BMs in setting of narcotic use. (3) Cervical spondylitis Comment: - Intermittent chronic neck pain. - Imaging done shows severe narrowing at C4-5 and C5-6. Patient not a candidate for surgery given significant co-morbidities. - Continue pain meds, add routine bowel regimen. (4) Systolic CHF Comment: - Appears euvolemic. - Continue torsemide. (5) Hyperthyroidism Comment: - T4 and T3 low. - Decrease methimazole, patient to follow up with his mineral resources inspector at [place]. (6) Anemia, chronic disease Comment: - Stable. (7) CKD (chronic kidney disease) stage 3, GFR 30-59 ml/min Comment: - At baseline. (8) COPD (chronic obstructive pulmonary disease) Comment: - No signs of COPD exacerbation. Continue usual home inhaler regimen. (9) BPH (benign prostatic hyperplasia) Comment: - Continue doxazosin and finasteride. (10) H/O ventricular tachycardia Comment: - Continue amiodarone and mexiletine. (11) Gout Comment: - Hx of gout, Continue allopurinol. (12) DVT prophylaxis Comment: - SQ heparin. (13) Full code status Status and Disposition: OBV.
[2017-06-23] MEDS: Ferrous Sulfate TAB* 325 MG PO SCH ×2 (08:44→21:19)
[2017-06-23] MEDS: Folic Acid TAB* 1 MG PO SCH (08:44)
[2017-06-23] MEDS: Allopurinol TAB* 100 MG PO SCH (08:45)
[2017-06-23] MEDS: Carvedilol TAB* 6.25 MG PO SCH ×2 (08:45→22:52)
[2017-06-23] MEDS: Torsemide TAB* 20 MG PO SCH (08:46)
[2017-06-23] MEDS: Prenatal Vitamin TAB PO SCH (08:46)
[2017-06-23] MEDS: Amiodarone TAB* 200 MG PO SCH (08:46)
[2017-06-23] MEDS: Methimazole TAB* 5 MG PO SCH ×3 (08:46→16:45)
[2017-06-23] MEDS: MEXILETINE 200 MG PO SCH ×3 (08:47→22:13)
[2017-06-23] MEDS ORDERED: Lisinopril TAB* 5 MG PO SCH (09:00)
[2017-06-23 10:47] LABS: TSH (Thyroid Stimulating Horm) 16.5 mcIU/mL (0.34-5.60)
[2017-06-23 10:51] LABS: Free T3 1.9 pg/mL (2.5-3.9)
[2017-06-23 10:53] LABS: Free T4 0.38 ng/dL (0.61-1.12)
--- NOTE | 2017-06-23 16:13 | ED ---
Melanie Holland Edward, scribed for Jack Vicente MD on 06/22/17 at 0709 . Progress - Progress Note Progress Note: Pt signed out from Dr. Bhatti pending ABD/PEL CT. Pt has severe constipation and weakness in the R arm. Pt states the last time the pt defecated was a couple of days ago. PE - VITAL SIGNS: Reviewed. GENERAL: Patient is a well-developed and nourished male who is lying comfortable in the stretcher. ~Patient is not in any acute respiratory distress. HEAD AND FACE: Normocephalic and atraumatic. EYES: PERRLA, EOMI x 2, No injected conjunctiva. EARS: Hearing grossly intact. Ear canals and tympanic membranes are WNL. MOUTH: Oropharynx within normal limits. NECK: Supple, trachea is midline, no adenopathy, no JVD. CHEST: Symmetric, no tenderness at palpation LUNGS: Clear to auscultation bilaterally. No wheezing or crackles. CVS: RRR, S1 and S2 present, no murmurs or gallops appreciated. ABDOMEN: Soft, non-tender. No signs of distention. Positive bowel sounds. No rebound no guarding, and no masses palpated. No abdominal bruit or pulsations. EXTREMITIES: FROM in all major joints, no edema, no cyanosis or clubbing. NEURO: Alert and oriented x 3. No acute neurological deficits. Speech is normal. SKIN: Dry and warm RECTAL EXAM: Board empty. Unable to reach hard stool. No blood - Results/Orders Results/Orders: ABD/PEL CT - 1. Cardiomegaly. Minimal bilateral pleural effusions with interval decrease. 2. Unchanged hepatosplenomegaly. 3. Severe colonic diverticulosis without findings of acute diverticulitis. Only moderate stool present in the colon. Negative for bowel obstruction. 4. Negative for ascites. 5. 2.7 x 3.2 cm LEFT adrenal nodule is likely benign given only minimal interval change compared with the July 01, 2015 exam. 6. Negative for lymphadenopathy. CXR - The constellation of findings favors mild pulmonary vascular congestion and interstitial edema. Minimal RIGHT pleural effusion. Course/Dx - Course Course Of Treatment: Pt is signed out by Dr. Bhatti pending ABD/PEL CT. ABD/PEL CT - 1. Cardiomegaly. Minimal bilateral pleural effusions with interval decrease. 2. Unchanged hepatosplenomegaly. 3. Severe colonic diverticulosis without findings of acute diverticulitis. Only moderate stool present in the colon. Negative for bowel obstruction. 4. Negative for ascites. 5. 2.7 x 3.2 cm LEFT adrenal nodule is likely benign given only minimal interval change compared with the July 01, 2015 exam. 6. Negative for lymphadenopathy. CXR - The constellation of findings favors mild pulmonary vascular congestion and interstitial edema. Minimal RIGHT pleural effusion. Pt signed out by Dr. Bhatti awaiting test results and ABD/PEL CT. Blood work shows symptomatic anemia, acute on chronic renal failure and BNP 692 consistent with exacerbation of CHF. UA (-) for UTI. Ct c/p. I performed a rectal exam with no stool in the board and guaiac negative. Pt given magnesium citrate, lactulose, Miralax and enema for constipation. However, because of the symptoms discussed with Dr. Negrete and accepted the pt for admission. - Diagnoses Provider Diagnoses: Constipation, CHF exacerbation, Acute on chronic renal failure - Provider Notifications Discussed Care Of Patient With: Leonel Negrete Time Discussed With Above Provider: 11:05 Instructed by Provider To: Admit As Inpatient The documentation as recorded by the Melanie munson Edward accurately reflects the service I personally performed and the decisions made by , Jack Vicente MD.
[2017-06-23] MEDS ORDERED: Simethicone LIQ* 40 MG/0.6 ML UD ORAL SYRINGE PO PRN ×2 (16:57→22:45)
[2017-06-23] MEDS: Finasteride TAB* 5 MG PO SCH (21:19)
[2017-06-24] MEDS: Doxazosin TAB* 2 MG PO SCH ×2 (00:11→21:19)
[2017-06-24] MEDS ORDERED: LORazepam INJ* 2 MG/ML 1 ML VIAL IV PUSH ONE (00:28)
[2017-06-24] MEDS: Heparin VIAL(*) 5000 UNITS/ML VIAL (FIVE THOUSAND) SUBCUT SCH ×3 (05:56→21:21)
--- NOTE | 2017-06-24 07:37 | PN ---
Subjective Date of Service: 06/24/17 Interval History: Mr. Carvalho states that he is feeling ok at the moment but he became very anxious in the middle of the night when he felt that his blood pressure was too low and he was having brief runs of vtach. He continues to have abdominal distention and to feel like this is impairing his breathing. On review of the EMR, patient had a SBP as low as 90 overnight which is consistent with his BP since admission. He was also noted to have two runs of vtach, one was 9 beats and the second was 11 beats. Both were asymptomatic and self-limited. Objective Active Medications: Hydrocodone Bitart/Acetaminophen ([place] 5-325 Tab*) 1 tab PO Q6H PRN Hydrocodone Bitart/Acetaminophen ([place] 5-325 Tab*) 2 tab PO Q4H PRN Allopurinol (Zyloprim Tab*) 100 mg PO DAILY FAY Amiodarone HCl (Cordarone Tab*) 100 mg PO DAILY FAY Bisacodyl (Dulcolax Supp*) 10 mg [place] DAILY PRN Carisoprodol (Soma Tab*) 350 mg PO TID PRN Carvedilol (Coreg Tab*) 12.5 mg PO BID FAY Digoxin (Lanoxin Tab*) 0.125 mg PO MOWEFR FAY Doxazosin Mesylate (Cardura Tab*) 4 mg PO BEDTIME FAY Ferrous Sulfate (Ferrous Sulfate Tab*) 325 mg PO BID FAY Finasteride (Proscar Tab*) 5 mg PO BEDTIME FAY Folic Acid (Folvite Tab*) 1 mg PO DAILY FAY Heparin Sodium (Porcine) (Heparin Vial(*)) 5,000 units SUBCUT Q8HR [facility] Influenza Virus Vaccine (Fluarix *Quad* 2017*) 0.5 ml IM .ONCE ONE Lactulose (Lactulose*) 30 ml PO TID PRN Methimazole (Tapazole Tab*) 10 mg PO DAILY FAY Mexiletine HCl (Mexitil Cap*) 200 mg PO TID FAY Mineral Oil (Fleet Mineral Oil Enema*) 1 bottle [place] DAILY PRN Multivitamins ( Vitamin Tab*) 1 tab PO DAILY FAY Polyethylene Glycol/Electrolytes (Miralax*) 17 gm PO DAILY PRN Simethicone (Mylicon Liq*) 40 mg PO Q8H PRN Spironolactone (Aldactone Tab*) 12.5 mg PO MOWEFR FAY Torsemide (Demadex*) 30 mg PO DAILY FAY Tramadol HCl (Ultram*) 50 mg PO Q12HR PRN Vital Signs: Temp Pulse Resp BP Pulse Ox 98.0 F 71 18 93/44 100 06/24/17 11:28 06/24/17 11:28 06/24/17 14:10 06/24/17 11:28 06/24/17 11:28 Oxygen Devices in Use Now: Nasal Cannula Appearance: Male sitting up in chair in NAD Eyes: No Scleral Icterus Ears/Nose/Mouth/Throat: Mucous Membranes Moist Neck: Trachea Midline Respiratory: Symmetrical Chest Expansion and Respiratory Effort, Clear to Auscultation, - - Diminished bilaterally Cardiovascular: NL Sounds; No Murmurs; No JVD, No Edema Abdominal: - - Distended and moderately firm, soft, BS +, no rebound or guarding Lymphatic: No Cervical Adenopathy Extremities: No Edema Skin: No Rash or Ulcers Neurological: Alert and Oriented x 3, NL Muscle Strength and Tone Nutrition: Taking PO's Result Diagrams: 06/23/17 06:48 06/23/17 06:48 Assess/Plan/Problems-Billing Assessment: Mr. Carvalho is a 76 yo male with a PMH of ischemic cardiomyopathy and EF 25-30% who was admitted on 06/22/17 with SOB felt to be secondary to constipation with abdominal distention. - Patient Problems (1) Shortness of breath Comment: - Essentially unchanged, on 4.5 L O2 which is his baseline. - No evidence of infection of CHF exacerbation. - Suspect secondary to abdominal distention with constipation from narcotics for neck pain. (2) Constipation Comment: - Abd xray shows non-specific bowel gas pattern, no significant amount of stool. - Increase simethicone to multi-drug cocktail to promote regular BMs in setting of narcotic use. (3) Ventricular tachycardia Comment: - Two self limited brief episodes overnight, has ICD. - K 4.1, Mag 3. Repeat in AM. - Patient chronically hypoxic but on home O2 with SpO2 > 90%. (4) Cervical spondylitis Comment: - Intermittent chronic neck pain. - Imaging done shows severe narrowing at C4-5 and C5-6. Patient not a candidate for surgery given significant co-morbidities. - Continue pain meds, add routine bowel regimen. (5) Systolic CHF Comment: - Appears euvolemic. - Continue torsemide. (6) Hyperthyroidism Comment: - T4 and T3 low. This is likely contributing to decreased gut motility. - Continue decreased methimazole, patient to follow up with his publication editor at [facility]. (7) Anemia, chronic disease Comment: - Stable. (8) CKD (chronic kidney disease) stage 3, GFR 30-59 ml/min Comment: - At baseline. (9) COPD (chronic obstructive pulmonary disease) Comment: - No signs of COPD exacerbation. Continue usual home inhaler regimen. (10) BPH (benign prostatic hyperplasia) Comment: - Continue doxazosin and finasteride. (11) H/O ventricular tachycardia Comment: - Continue amiodarone and mexiletine. (12) Gout Comment: - Hx of gout, Continue allopurinol. (13) DVT prophylaxis Comment: - SQ heparin. (14) Full code status Status and Disposition: OBV.
[2017-06-24] MEDS ORDERED: Influenza VAC *QUAD* 2017-18* 0.5 ML SYRINGE IM ONE (08:00)
[2017-06-24] MEDS: MEXILETINE 200 MG PO SCH ×3 (09:05→21:20)
[2017-06-24] MEDS: Prenatal Vitamin TAB PO SCH (09:07)
[2017-06-24] MEDS: Torsemide TAB* 20 MG PO SCH (09:08)
[2017-06-24] MEDS: Methimazole TAB* 5 MG PO SCH (09:08)
[2017-06-24] MEDS: Folic Acid TAB* 1 MG PO SCH (09:10)
[2017-06-24] MEDS: Allopurinol TAB* 100 MG PO SCH (09:10)
[2017-06-24] MEDS: Carvedilol TAB* 6.25 MG PO SCH ×2 (09:10→21:19)
[2017-06-24] MEDS: Amiodarone TAB* 200 MG PO SCH (09:11)
[2017-06-24] MEDS: Ferrous Sulfate TAB* 325 MG PO SCH ×2 (09:11→21:20)
[2017-06-24] MEDS: Spironolactone TAB* 25 MG PO SCH (10:14)
[2017-06-24] MEDS: LORazepam TAB(*) 0.5 MG PO PRN ×2 (14:10→22:11)
[2017-06-24] MEDS ORDERED: Simethicone LIQ* 40 MG/0.6 ML UD ORAL SYRINGE PO PRN (14:17)
[2017-06-24] MEDS: Simethicone TAB* 80 MG TAB.CHEW PO PRN ×2 (14:32→22:14)
--- NOTE | 2017-06-24 14:35 | RAD ---
INDICATION: Abdominal distention COMPARISON: Chest x-ray June 22, 2017 TECHNIQUE: Erect and supine views of the abdomen are submitted. FINDINGS: Bones: There are no acute bony findings. Soft tissues: The soft tissues appear normal. The psoas margins are sharp. Bowel gas pattern: The bowel gas pattern is nondiagnostic. There is minor gaseous distention. There are air-filled loops of small bowel in left abdomen without significant distention. There is stool within the colon. Calcifications: There are no abnormal calcifications. Other: There are right basilar lung abnormalities as also identified on earlier chest radiograph IMPRESSION: NONSPECIFIC BOWEL GAS PATTERN. SUGGEST FOLLOW-UP INDICATED.
[2017-06-24] MEDS: Digoxin TAB* 0.125 MG PO SCH (17:38)
[2017-06-24] MEDS: Finasteride TAB* 5 MG PO SCH (21:09)
[2017-06-25 05:42] LABS: BUN/Creatinine Ratio 22.2 (8-20); Calcium 7.8 mg/dL (8.6-10.3); EGFR African American 32.7 (>60); EGFR Non-African American 25.4 (>60); Magnesium 2.4 mg/dL (1.9-2.7)
[2017-06-25] MEDS: Heparin VIAL(*) 5000 UNITS/ML VIAL (FIVE THOUSAND) SUBCUT SCH ×3 (05:47→21:27)
[2017-06-25] MEDS: Carvedilol TAB* 6.25 MG PO SCH ×2 (09:29→21:27)
[2017-06-25] MEDS: Allopurinol TAB* 100 MG PO SCH (09:30)
[2017-06-25] MEDS: Torsemide TAB* 20 MG PO SCH (09:30)
[2017-06-25] MEDS: Simethicone TAB* 80 MG TAB.CHEW PO PRN ×2 (09:30→19:28)
[2017-06-25] MEDS: Ferrous Sulfate TAB* 325 MG PO SCH ×2 (09:33→21:27)
[2017-06-25] MEDS: Folic Acid TAB* 1 MG PO SCH (09:33)
[2017-06-25] MEDS: Amiodarone TAB* 200 MG PO SCH (09:33)
[2017-06-25] MEDS: Prenatal Vitamin TAB PO SCH (09:40)
[2017-06-25] MEDS: Carisoprodol TAB* 350 MG PO PRN (09:40)
[2017-06-25] MEDS: Methimazole TAB* 5 MG PO SCH (09:41)
[2017-06-25] MEDS: LORazepam TAB(*) 0.5 MG PO PRN (09:42)
[2017-06-25] MEDS: MEXILETINE 200 MG PO SCH ×3 (09:42→21:27)
--- NOTE | 2017-06-25 18:14 | PN ---
Subjective Date of Service: 06/25/17 Interval History: Mr. Carvalho was initially much less responsive than usual and very lethargic. Over the course of the day, he is now back to his baseline. He blames the lorazepam that he received this AM, which is the likely culprit. Patient had a fall today while getting up to ambulate to the bathroom. He complains of right knee pain now. He agrees that his constipation and bloating are improved and that his breathing seems to be at his baseline. He denies other complaint. I spoke with him at length about the fact that he continues to appear weak and unable to continue to care for himself at home. He is thoughtful during the discussion but unsure if he would be willing to do rehab or accept additional help in his home. He would like to have our team speak with his neighbors who are his health care proxy. Objective Active Medications: Hydrocodone Bitart/Acetaminophen ([place] 5-325 Tab*) 1 tab PO Q6H PRN Hydrocodone Bitart/Acetaminophen ([place] 5-325 Tab*) 2 tab PO Q4H PRN Allopurinol (Zyloprim Tab*) 100 mg PO DAILY FAY Amiodarone HCl (Cordarone Tab*) 100 mg PO DAILY FAY Bisacodyl (Dulcolax Supp*) 10 mg [place] DAILY PRN Carisoprodol (Soma Tab*) 350 mg PO TID PRN Carvedilol (Coreg Tab*) 12.5 mg PO BID FAY Digoxin (Lanoxin Tab*) 0.125 mg PO MOWEFR FAY Doxazosin Mesylate (Cardura Tab*) 4 mg PO BEDTIME FAY Ferrous Sulfate (Ferrous Sulfate Tab*) 325 mg PO BID FAY Finasteride (Proscar Tab*) 5 mg PO BEDTIME FAY Folic Acid (Folvite Tab*) 1 mg PO DAILY FAY Heparin Sodium (Porcine) (Heparin Vial(*)) 5,000 units SUBCUT Q8HR FAY Lactulose (Lactulose*) 30 ml PO TID PRN Methimazole (Tapazole Tab*) 10 mg PO DAILY FAY Mexiletine HCl (Mexitil Cap*) 200 mg PO TID FAY Mineral Oil (Fleet Mineral Oil Enema*) 1 bottle [place] DAILY PRN Multivitamins ( Vitamin Tab*) 1 tab PO DAILY FAY Polyethylene Glycol/Electrolytes (Miralax*) 17 gm PO DAILY PRN Simethicone (Mylicon Tab*) 80 mg PO Q6H PRN Spironolactone (Aldactone Tab*) 12.5 mg PO MOWEFR FAY Torsemide (Demadex*) 30 mg PO DAILY FAY Tramadol HCl (Ultram*) 50 mg PO Q12HR PRN Vital Signs: Temp Pulse Resp BP Pulse Ox 99.5 F 67 18 95/43 100 06/25/17 16:16 06/25/17 16:16 06/25/17 17:56 06/25/17 16:16 06/25/17 16:16 Oxygen Devices in Use Now: Nasal Cannula Appearance: Male sitting up in chair in NAD Eyes: No Scleral Icterus Ears/Nose/Mouth/Throat: Mucous Membranes Moist Neck: Trachea Midline Respiratory: Symmetrical Chest Expansion and Respiratory Effort, Clear to Auscultation, - - Diminished Cardiovascular: NL Sounds; No Murmurs; No JVD, No Edema Abdominal: NL Sounds; No Tenderness; No Distention Lymphatic: No Cervical Adenopathy, - - Cervical collar in place Extremities: No Edema Skin: No Rash or Ulcers Neurological: Alert and Oriented x 3, NL Muscle Strength and Tone Nutrition: Taking PO's Result Diagrams: 06/23/17 06:48 06/25/17 05:02 Assess/Plan/Problems-Billing Assessment: Mr. Carvalho is a 76 yo male with a PMH of ischemic cardiomyopathy and EF 25-30% who was admitted on 06/22/17 with SOB felt to be secondary to constipation with abdominal distention. - Patient Problems (1) Shortness of breath Comment: - Essentially unchanged, on 4.5 L O2 which is his baseline. - No evidence of infection of CHF exacerbation. - Suspect was secondary to abdominal distention with constipation from narcotics for neck pain. (2) Constipation Comment: - Resolved. - Abd xray shows non-specific bowel gas pattern, no significant amount of stool. - Increase simethicone to multi-drug cocktail to promote regular BMs in setting of narcotic use. (3) Ventricular tachycardia Comment: - Two self limited brief episodes, has ICD. - K 4.1, Mag 2.3. - Patient chronically hypoxic but on home O2 with SpO2 > 90%. - Continue amiodarone and mexiletine. (4) Cervical spondylitis Comment: - Intermittent chronic neck pain. - Imaging done shows severe narrowing at C4-5 and C5-6. Patient not a candidate for surgery given significant co-morbidities. - Continue pain meds, add routine bowel regimen. (5) Systolic CHF Comment: - Appears euvolemic. - Continue torsemide. (6) Hyperthyroidism Comment: - T4 and T3 low. This is likely contributing to decreased gut motility. - Continue decreased methimazole, patient to follow up with his faculty head at [place] to follow labs. (7) Anemia, chronic disease Comment: - Stable. (8) CKD (chronic kidney disease) stage 3, GFR 30-59 ml/min Comment: - At baseline. (9) COPD (chronic obstructive pulmonary disease) Comment: - No signs of COPD exacerbation. Continue usual home inhaler regimen. (10) BPH (benign prostatic hyperplasia) Comment: - Continue doxazosin and finasteride. (11) Gout Comment: - Hx of gout, Continue allopurinol. (12) DVT prophylaxis Comment: - SQ heparin. (13) Full code status Status and Disposition: Inpatient. Plan to speak with patient's neighbors and HCPs tomorrow. Patient considering options of increased help at home vs rehab placement.
--- NOTE | 2017-06-25 21:01 | RAD ---
INDICATION: Right knee injury. TECHNIQUE: 2 views of the right knee were obtained. FINDINGS: The bones are in normal alignment. There is a small joint effusion present. No fracture is seen. There is mild medial joint space narrowing. IMPRESSION: SMALL JOINT EFFUSION, NO FRACTURE IS SEEN.
[2017-06-25] MEDS: Doxazosin TAB* 2 MG PO SCH (21:27)
[2017-06-25] MEDS: Finasteride TAB* 5 MG PO SCH (21:27)
[2017-06-26] MEDS: Heparin VIAL(*) 5000 UNITS/ML VIAL (FIVE THOUSAND) SUBCUT SCH ×3 (05:07→22:09)
[2017-06-26] MEDS: Torsemide TAB* 20 MG PO SCH (09:40)
[2017-06-26] MEDS: Carvedilol TAB* 6.25 MG PO SCH ×2 (09:41→22:08)
[2017-06-26] MEDS: Prenatal Vitamin TAB PO SCH (09:41)
[2017-06-26] MEDS: Allopurinol TAB* 100 MG PO SCH (09:42)
[2017-06-26] MEDS: Ferrous Sulfate TAB* 325 MG PO SCH ×2 (09:42→22:09)
[2017-06-26] MEDS: Simethicone TAB* 80 MG TAB.CHEW PO PRN (09:43)
[2017-06-26] MEDS: Folic Acid TAB* 1 MG PO SCH (09:44)
[2017-06-26] MEDS: Amiodarone TAB* 200 MG PO SCH (09:44)
[2017-06-26] MEDS: Methimazole TAB* 5 MG PO SCH (09:45)
[2017-06-26] MEDS: MEXILETINE 200 MG PO SCH ×3 (09:45→22:07)
[2017-06-26] MEDS: Digoxin TAB* 0.125 MG PO SCH (09:56)
[2017-06-26] MEDS: Spironolactone TAB* 25 MG PO SCH (09:56)
[2017-06-26] MEDS: Sertraline* 50 MG TAB PO SCH (11:42)
[2017-06-26] MEDS: Carisoprodol TAB* 350 MG PO PRN (14:21)
--- NOTE | 2017-06-26 15:28 | CONSULT ---
Consult Consult: Consult for Medical Decision Making Capacity S: Psychiatry is asked to render an opinion on the decision making capacity of this 76 y.o. single, white male with multiple medical comorbidities currently admitted to the 4th floor telemetry unit secondary to shortness of breath and constipation. The primary team expresses that the patient would likely be a risk to himself if discharged to his home in [place], [place], where he resides alone. They are recommending SNF placement to avoid dangerous outcomes such as falls, failure to adhere to life-saving medications and inability to manage his own essential ADLs. He is apparently declining SNF placement, preferring d/c back to his house. Prior to meeting the patient, a discussion with his assigned nurse indicates that Mr. Carvalho is very needy and demanding and often uncooperative, refusing to do basic elements of self-care and requiring more staff assistance than is warranted by his physical abilities. Furthermore, they perceive him as oppositional and intermittently hostile. On exam the patient is calm and agreeable with the interview. He reports that he could live in his home safely if he had a live-in aid to assist him. He states that his sister has monetary resources to help him procure this assistance if he could just get in touch with her. She apparently lives in [place], [place]. When asked him what risks might be entailed by not following medical advice and returning home, he states "My blood pressure could go too low , or I could fall or something like that." He states that a nursing facility would be too high a level of care for him, but he is willing to entertain the idea of a sub-acute rehab, particularly after injuring his knee in a recent fall here on the unit. He is attentive and respectful throughout the examination. O: aging white bearded male; denies SI or HI; scores 25/30 on MMSE (missed one point for year, one point for town and three points for delayed recall) A/P: Capacity: the patient is able to articulate the risks, benefits and alternatives to SNF placement, including the risks of refusing said treatment. He is cognitively intact at this time. Psychiatry deems that this patient currently has medical decision making capacity. This could of course change and psychiatry can be reconsulted in the event of any change in the patient's mentation.
--- NOTE | 2017-06-26 16:08 | PN ---
Subjective Date of Service: 06/26/17 Interval History: Patient has 5/10 pain in his knee from a fall yesterday. Patient states this is stable from yesterday. Had long conversation with patient about his medical care and patient feels he is being undertreated by both his PCP and his net applications developer and that he was taken off his Zoloft that he needs for no reason. Per the nursing staff patient has been uncooperative with treatment and self care and there was suspicion that the fall yesterday may have been purposeful, or at least happened while disregarding warnings about his safety. Family History: Unchanged from Admission Social History: Unchanged from Admission Past Medical History: Unchanged from Admission Objective Active Medications: Hydrocodone Bitart/Acetaminophen ([place] 5-325 Tab*) 1 tab PO Q6H PRN PRN Reason: PAIN Hydrocodone Bitart/Acetaminophen ([place] 5-325 Tab*) 2 tab PO Q4H PRN PRN Reason: PAIN Last Admin: 06/25/17 17:56 Dose: 2 tab Allopurinol (Zyloprim Tab*) 100 mg PO DAILY [facility] Last Admin: 06/26/17 09:42 Dose: 100 mg Amiodarone HCl (Cordarone Tab*) 100 mg PO DAILY [facility] Last Admin: 06/26/17 09:44 Dose: 100 mg Bisacodyl (Dulcolax Supp*) 10 mg [place] DAILY PRN PRN Reason: CONSTIPATION Carisoprodol (Soma Tab*) 350 mg PO TID PRN PRN Reason: PAIN Last Admin: 06/26/17 14:21 Dose: 350 mg Carvedilol (Coreg Tab*) 12.5 mg PO BID [facility] Last Admin: 06/26/17 09:41 Dose: 12.5 mg Digoxin (Lanoxin Tab*) 0.125 mg PO MOWEFR [facility] Last Admin: 06/26/17 09:56 Dose: 0.125 mg Doxazosin Mesylate (Cardura Tab*) 4 mg PO BEDTIME [facility] Last Admin: 06/25/17 21:27 Dose: 4 mg Ferrous Sulfate (Ferrous Sulfate Tab*) 325 mg PO BID [facility] Last Admin: 06/26/17 09:42 Dose: 325 mg Finasteride (Proscar Tab*) 5 mg PO BEDTIME [facility] Last Admin: 06/25/17 21:27 Dose: 5 mg Folic Acid (Folvite Tab*) 1 mg PO DAILY [facility] Last Admin: 06/26/17 09:44 Dose: 1 mg Heparin Sodium (Porcine) (Heparin Vial(*)) 5,000 units SUBCUT Q8HR [facility] Last Admin: 06/26/17 14:20 Dose: 5,000 units Lactulose (Lactulose*) 30 ml PO TID PRN PRN Reason: CONSTIPATION Last Admin: 06/26/17 14:21 Dose: 30 ml Methimazole (Tapazole Tab*) 10 mg PO DAILY [facility] Last Admin: 06/26/17 09:45 Dose: 10 mg Mexiletine HCl (Mexitil Cap*) 200 mg PO TID [facility] Last Admin: 06/26/17 14:20 Dose: 200 mg Mineral Oil (Fleet Mineral Oil Enema*) 1 bottle [place] DAILY PRN PRN Reason: CONSTIPATION Multivitamins ( Vitamin Tab*) 1 tab PO DAILY [facility] Last Admin: 06/26/17 09:41 Dose: 1 tab Polyethylene Glycol/Electrolytes (Miralax*) 17 gm PO DAILY PRN PRN Reason: CONSTIPATION Last Admin: 06/26/17 09:46 Dose: 17 gm Sertraline HCl (Zoloft*) 50 mg PO DAILY [facility] Last Admin: 06/26/17 11:42 Dose: 50 mg Simethicone (Mylicon Tab*) 80 mg PO Q6H PRN PRN Reason: gas distention Last Admin: 06/26/17 09:43 Dose: 80 mg Spironolactone (Aldactone Tab*) 12.5 mg PO MOWEFR [facility] Last Admin: 06/26/17 09:56 Dose: 12.5 mg Torsemide (Demadex*) 30 mg PO DAILY [facility] Last Admin: 06/26/17 09:40 Dose: 30 mg Tramadol HCl (Ultram*) 50 mg PO Q12HR PRN PRN Reason: PAIN Last Admin: 06/26/17 09:44 Dose: 50 mg Vital Signs 06/25/17 06/25/17 06/25/17 16:16 17:56 19:10 Temperature 99.5 F Pulse Rate 67 Respiratory 20 18 17 Rate Blood Pressure 95/43 (mmHg) O2 Sat by Pulse 100 Oximetry 06/25/17 06/25/17 06/25/17 19:46 19:56 21:26 Temperature 99.0 F Pulse Rate 68 Respiratory 18 17 Rate Blood Pressure 90/44 116/42 (mmHg) O2 Sat by Pulse 98 Oximetry 06/25/17 06/25/17 06/26/17 23:15 23:19 03:56 Temperature 97.9 F 98.2 F Pulse Rate 66 66 Respiratory 20 20 Rate Blood Pressure 87/42 102/46 87/41 (mmHg) O2 Sat by Pulse 99 100 Oximetry 06/26/17 06/26/17 06/26/17 04:11 07:19 08:00 Temperature 98.1 F Pulse Rate 78 Respiratory 18 18 Rate Blood Pressure 112/62 99/49 (mmHg) O2 Sat by Pulse 100 Oximetry 06/26/17 06/26/17 06/26/17 09:44 09:56 11:43 Temperature Pulse Rate 78 Respiratory 18 18 Rate Blood Pressure (mmHg) O2 Sat by Pulse Oximetry 06/26/17 06/26/17 12:25 14:21 Temperature 99.8 F Pulse Rate 79 Respiratory 22 18 Rate Blood Pressure 88/43 (mmHg) O2 Sat by Pulse 100 Oximetry Oxygen Devices in Use Now: Nasal Cannula Appearance: Patient is a 76yo male sitting comfortably in chair in [facility]. Eyes: No Scleral Icterus, PERRLA Ears/Nose/Mouth/Throat: NL Teeth, Lips, Gums, Clear Oropharnyx, Mucous Membranes Moist Respiratory: Symmetrical Chest Expansion and Respiratory Effort, - - Slight inspiratory crackles in lower lobes bilaterally. Cardiovascular: RRR, - - 1+ pitting edema in B/L lower etremities. 2/6 systolic ejection murmur heard best at RUSB 2nd intercostal space. Abdominal: - - Distended abdomen, bowel sounds hyperactive in all 4 quadrants. Tympanic to percussion. Exam limited by body habitus. Lymphatic: No Cervical Adenopathy Extremities: No Clubbing, Cyanosis, - - Redness without ecchymosis on Skin: No Rash or Ulcers Neurological: Alert and Oriented x 3, - - CN II-XII grossly intact. Result Diagrams: 06/23/17 06:48 06/25/17 05:02 Additional Lab and Data: 06/23/17 06/25/17 06:48 05:02 Sodium 130 L Potassium 4.0 Chloride 93 L Carbon Dioxide 31 Anion Gap 6 BUN 55 H Creatinine 2.48 H Est GFR ( Amer) 32.7 Est GFR (Non-Af Amer) 25.4 BUN/Creatinine Ratio 22.2 H Glucose 129 H Calcium 7.8 L Magnesium 3.0 H 2.4 Assess/Plan/Problems-Billing Assessment: Mr. Carvalho is a 76 yo male with a PMH of ischemic cardiomyopathy and EF 25-30% who was admitted on 06/22/17 with SOB felt to be secondary to constipation with abdominal distention. - Patient Problems (1) Cervical spondylitis Current Visit: Yes Status: Acute Code(s): M46.92 - UNSPECIFIED INFLAMMATORY SPONDYLOPATHY, CERVICAL REGION SNOMED Code(s): 826491764 Comment: Intermittent chronic neck pain. Imaging done shows severe narrowing at C4-5 and C5-6. Patient not a candidate for surgery given significant co-morbidities. Continue pain meds, add routine bowel regimen. (2) Constipation Current Visit: Yes Status: Acute Code(s): K59.00 - CONSTIPATION, UNSPECIFIED SNOMED Code(s): 49146917 Comment: Patient has not had a bowel movement yet today despite bowel regimen. No significant increase in abdominal pain. Continue multi-drug cocktail to promote regular BMs in setting of narcotic use. Consider Methylnaltrexone as outpatient. (3) Systolic CHF Current Visit: Yes Status: Acute Code(s): I50.20 - UNSPECIFIED SYSTOLIC ( CONGESTIVE) HEART FAILURE SNOMED Code(s): 397023422 Comment: Slight crackles and edema, consider additional diuretics when BP able to tolerate. (4) Ventricular tachycardia Current Visit: Yes Status: Acute Code(s): I47.2 - VENTRICULAR TACHYCARDIA SNOMED Code(s): 63586397 Comment: Two self limited brief episodes, has ICD. No recurrence Continue amiodarone and mexiletine. (5) CKD (chronic kidney disease) stage 3, GFR 30-59 ml/min Current Visit: No Status: Acute Code(s): N18.3 - CHRONIC KIDNEY DISEASE, STAGE 3 (MODERATE) SNOMED Code(s): 224232222 Comment: - At baseline, slightly improving. Will use diuretics judiciously and repeat in morning. (6) DVT prophylaxis Current Visit: No Status: Acute Code(s): CKF9109 - SNOMED Code(s): 145910350 Comment: - SQ heparin. (7) Full code status Current Visit: No Status: Acute Code(s): Z78.9 - OTHER SPECIFIED HEALTH STATUS SNOMED Code(s): 444789661 (8) Hyperthyroidism Current Visit: No Status: Acute Code(s): E05.90 - THYROTOXICOSIS, UNSP WITHOUT THYROTOXIC CRISIS OR STORM SNOMED Code(s): 81172791 Comment: Continue lowered methimazole, will recheck TSH in morning. Status and Disposition: Inpatient. Patient willing to consider SNF. Would prefer to go home with multimedia artist aide when he finishes refurbishing house. Concerns with compliance and self care at home based on behavior in hospital. Patient competent to refuse placement per psych.
[2017-06-26] MEDS: Doxazosin TAB* 2 MG PO SCH (22:08)
[2017-06-26] MEDS: Finasteride TAB* 5 MG PO SCH (22:09)
[2017-06-27] MEDS: Carisoprodol TAB* 350 MG PO PRN ×3 (03:54→22:04)
[2017-06-27] MEDS: Heparin VIAL(*) 5000 UNITS/ML VIAL (FIVE THOUSAND) SUBCUT SCH ×3 (06:10→21:51)
[2017-06-27 06:53] LABS: Hematocrit 24 % (42-52); Hemoglobin 8.1 g/dl (14.0-18.0); Mean Corpuscular HGB Conc 34 g/dl (31-36); Mean Corpuscular Hemoglobin 31 pg (27-31); Mean Corpuscular Volume 91 fL (80-94); Mean Platelet Volume 9 um3 (7.4-10.4); Red Blood Count 2.62 10^6/ul (4.0-5.4); Red Cell Distribution Width 16 % (10.5-15); White Blood Count 7.5 10^3/ul (3.5-10.8)
[2017-06-27 07:11] LABS: BUN/Creatinine Ratio 21.7 (8-20); EGFR African American 29.4 (>60); EGFR Non-African American 22.8 (>60); Potassium 4.3 mmol/L (3.5-5.0)
[2017-06-27 07:33] LABS: TSH (Thyroid Stimulating Horm) 16.64 mcIU/mL (0.34-5.60)
[2017-06-27] MEDS: Ferrous Sulfate TAB* 325 MG PO SCH ×2 (09:49→21:51)
[2017-06-27] MEDS: Sertraline* 50 MG TAB PO SCH (09:49)
[2017-06-27] MEDS: Methimazole TAB* 5 MG PO SCH (09:49)
[2017-06-27] MEDS: Allopurinol TAB* 100 MG PO SCH (09:50)
[2017-06-27] MEDS: Folic Acid TAB* 1 MG PO SCH (09:51)
[2017-06-27] MEDS: Prenatal Vitamin TAB PO SCH (09:51)
[2017-06-27] MEDS: Amiodarone TAB* 200 MG PO SCH (09:51)
[2017-06-27] MEDS: MEXILETINE 200 MG PO SCH ×3 (09:52→21:51)
[2017-06-27] MEDS: Torsemide TAB* 20 MG PO SCH (09:52)
[2017-06-27] MEDS: Carvedilol TAB* 6.25 MG PO SCH ×2 (09:52→21:56)
--- NOTE | 2017-06-27 14:52 | PN ---
Subjective Date of Service: 06/27/17 Interval History: Patient seen and examined at bedside. Pt states that he is anxious to get discharged. Denies fever, chills, chest discomfort, N/V/D. Pt states that he has shortness of breath, but feels that it is at his baseline. Tele: Paced, rate 70-80's with PVCs. Family History: Unchanged from Admission Social History: Unchanged from Admission Past Medical History: Unchanged from Admission Objective Active Medications: Hydrocodone Bitart/Acetaminophen ([place] 5-325 Tab*) 1 tab PO Q6H PRN Reason: PAIN Hydrocodone Bitart/Acetaminophen ([place] 5-325 Tab*) 2 tab PO Q4H PRN Reason: PAIN Allopurinol (Zyloprim Tab*) 100 mg PO DAILY [facility]AY Amiodarone HCl (Cordarone Tab*) 100 mg PO DAILY FAY Bisacodyl (Dulcolax Supp*) 10 mg [place] DAILY PRN Reason: CONSTIPATION Carisoprodol (Soma Tab*) 350 mg PO TID PRN Reason: PAIN Carvedilol (Coreg Tab*) 12.5 mg PO BID FAY Digoxin (Lanoxin Tab*) 0.125 mg PO MOWEFR FAY Doxazosin Mesylate (Cardura Tab*) 4 mg PO BEDTIME FAY Ferrous Sulfate (Ferrous Sulfate Tab*) 325 mg PO BID FAY Finasteride (Proscar Tab*) 5 mg PO BEDTIME FAY Folic Acid (Folvite Tab*) 1 mg PO DAILY [facility] Heparin Sodium (Porcine) (Heparin Vial(*)) 5,000 units SUBCUT Q8HR FAY Lactulose (Lactulose*) 30 ml PO TID PRN Reason: CONSTIPATION Methimazole (Tapazole Tab*) 10 mg PO DAILY FAY Mexiletine HCl (Mexitil Cap*) 200 mg PO TID FAY Mineral Oil (Fleet Mineral Oil Enema*) 1 bottle [place] DAILY PRN Reason: CONSTIPATION Multivitamins ( Vitamin Tab*) 1 tab PO DAILY [facility] Polyethylene Glycol/Electrolytes (Miralax*) 17 gm PO DAILY PRN Reason: CONSTIPATION Sertraline HCl (Zoloft*) 50 mg PO DAILY FAY Simethicone (Mylicon Tab*) 80 mg PO Q6H PRN Reason: gas distention Spironolactone (Aldactone Tab*) 12.5 mg PO MOWEFR FAY Torsemide (Demadex*) 30 mg PO DAILY FAY Tramadol HCl (Ultram*) 50 mg PO Q12HR PRN Reason: PAIN Vital Signs 06/26/17 06/26/17 06/26/17 15:25 16:21 19:30 Temperature 98.8 F 97.7 F Pulse Rate 73 74 Respiratory 16 18 16 Rate Blood Pressure 83/43 86/48 (mmHg) O2 Sat by Pulse 99 98 Oximetry 06/26/17 06/26/17 06/26/17 19:35 22:06 23:51 Temperature 99.2 F Pulse Rate 70 Respiratory 16 20 Rate Blood Pressure 116/48 83/45 (mmHg) O2 Sat by Pulse 100 Oximetry 06/26/17 06/27/17 06/27/17 23:55 03:30 03:45 Temperature 98.8 F Pulse Rate 74 Respiratory 20 Rate Blood Pressure 118/48 88/41 102/50 (mmHg) O2 Sat by Pulse 100 Oximetry 06/27/17 06/27/17 06/27/17 03:54 05:54 07:27 Temperature 100.4 F Pulse Rate 79 Respiratory 20 18 18 Rate Blood Pressure 98/49 (mmHg) O2 Sat by Pulse 100 Oximetry 06/27/17 06/27/17 06/27/17 08:00 09:49 09:55 Temperature Pulse Rate Respiratory 18 16 Rate Blood Pressure 102/42 (mmHg) O2 Sat by Pulse Oximetry Oxygen Devices in Use Now: Nasal Cannula - 4.5 L Appearance: NAD, sitting up in a chair. Ears/Nose/Mouth/Throat: Mucous Membranes Moist Respiratory: Symmetrical Chest Expansion and Respiratory Effort, Clear to Auscultation - , diminished Cardiovascular: NL Sounds; No Murmurs; No JVD, RRR Abdominal: NL Sounds; No Tenderness; No Distention Extremities: - - Trace bilateral LE edema Skin: No Rash or Ulcers Neurological: Alert and Oriented x 3, NL Muscle Strength and Tone Lines/Tubes/Other Access: Clean, Dry and Intact Peripheral IV - site benign Nutrition: Taking PO's Result Diagrams: 06/27/17 06:42 06/27/17 06:42 Additional Lab and Data: Assess/Plan/Problems-Billing Assessment: Mr. Carvalho is a 76 yo male with a PMH of ischemic cardiomyopathy and EF 25-30% who was admitted on 06/22/17 with SOB felt to be secondary to constipation with abdominal distention. - Patient Problems (1) Cervical spondylitis Code(s): M46.92 - UNSPECIFIED INFLAMMATORY SPONDYLOPATHY, CERVICAL REGION SNOMED Code(s): 539949954 Comment: - Intermittent chronic neck pain. - Imaging done 06/12/17 shows severe narrowing at C4-5 and C5-6. Patient not a candidate for surgery given significant co-morbidities. - Continue pain meds and routine bowel regimen. (2) Constipation Code(s): K59.00 - CONSTIPATION, UNSPECIFIED SNOMED Code(s): 80624639 Comment: - Patient has not had a bowel movement yet today despite bowel regimen. No significant increase in abdominal pain, moved his bowels twice yesterday - Continue multi-drug cocktail to promote regular BMs in setting of narcotic use. - Consider Methylnaltrexone as outpatient. (3) Systolic CHF Code(s): I50.20 - UNSPECIFIED SYSTOLIC (CONGESTIVE) HEART FAILURE SNOMED Code( s): 977605207 Comment: - Appears euvolemic today - Daily weights and strict I+O's - Continue torsemide and spironolactone (4) Ventricular tachycardia Code(s): I47.2 - VENTRICULAR TACHYCARDIA SNOMED Code(s): 67310004 Comment: - Two self limited brief episodes, has ICD. No recurrence - Continue amiodarone and mexiletine. (5) CKD (chronic kidney disease) stage 3, GFR 30-59 ml/min Code(s): N18.3 - CHRONIC KIDNEY DISEASE, STAGE 3 (MODERATE) SNOMED Code(s): 424289327 Comment: - At baseline. - Will use diuretics judiciously. (6) Hyperthyroidism Code(s): E05.90 - THYROTOXICOSIS, UNSP WITHOUT THYROTOXIC CRISIS OR STORM SNOMED Code(s): 56123759 Comment: - T4 and T3 low. This is likely contributing to decreased gut motility. - Continue decreased methimazole, patient to follow up with his computer training specialist at [place] to follow labs. (7) DVT prophylaxis Code(s): RKN6539 - SNOMED Code(s): 096657480 Comment: - SQ heparin. (8) Full code status Code(s): Z78.9 - OTHER SPECIFIED HEALTH STATUS SNOMED Code(s): 724057513 Status and Disposition: Inpatient. Concerns with compliance and self care at home based on behavior in hospital. Patient competent to refuse placement per psych. Pt is stable for discharge to [facility] today.
--- NOTE | 2017-06-27 17:10 | DS ---
CC: [facility]; Dr. Haines.* DISCHARGE SUMMARY: DATE OF ADMISSION: 06/22/17. DATE OF DISCHARGE: 06/28/17. ATTENDING PHYSICIAN: Dr. Bowen Martinez* (dictated by Trudi Montes NP) PRIMARY CARE PROVIDER: Dr. Javi Haines. PRIMARY DIAGNOSIS: 1. Constipation 2. Cervical Spondylosis SECONDARY DIAGNOSIS: 1. Chronic systolic heart failure 2. Ventricular tachycardia 3. Chronic Kidney Disease 4. Hyperthyroidism CONSULTATION WHILE IN THE HOSPITAL: Dr. Jenaro Guadarrama with Psychiatry. STUDIES WHILE IN THE HOSPITAL: 1. Abdomen and pelvis CT scan on 06/22/17. Radiologist's impression: Cardiomegaly. Minimal bilateral pleural effusions with interval decrease. Unchanged hepatosplenomegaly. Severe colonic diverticulosis without findings of acute diverticulitis. Only moderate stool present in the colon. Negative for bowel obstruction. Negative for ascites. 2.7 x 3.2 cm left adrenal nodule is likely benign given only minimal interval change compared with the 07/01/15 exam. Negative for lymphadenopathy. 2. Chest x-ray on 06/22/17. Radiologist's impression: The constellation of findings favors mild pulmonary vascular congestion and interstitial edema. Minimal right pleural effusion. 3. Abdominal x-ray from 06/24/17. Radiologist's impression: Nonspecific bowel gas pattern. Suggest followup as indicated. 4. Right knee x-ray on 06/25/17. Radiologist's impression: Small joint effusion, no fracture is seen. DISCHARGE MEDICATIONS: New home medications: 1. Dulcolax suppository 10 mg rectal every day as needed for constipation. 2. [place] 5/325 two tablets oral every 4 hours as needed for [id number] pain. 3. Sertraline 50 mg oral daily. 4. Simethicone 80 mg oral every 6 hours as needed for gas distention. Continued home medications: 1. Digoxin 0.125 mg every Saturday, Saturday, Saturday. 2. Folic acid 1 mg oral daily. 3. Cardura 4 mg oral daily at bedtime. 4. Finasteride 5 mg oral daily at bedtime. 5. Carvedilol 12.5 mg oral twice daily. 6. Torsemide 30 mg oral daily. 7. Allopurinol 100 mg oral daily. 8. Amlodipine 100 mg oral daily. 9. Amiodarone 100 mg oral daily. 10. Mexitil 200 mg oral 3 times daily. 11. Soma 350 mg oral 3 times daily as needed for muscle spasms. 12. Tramadol 50 mg oral every 6 hours as needed for pain. 13. Ferrous sulfate 325 mg oral twice daily. 14. Ipratropium bromide 0.03% nasal twice daily. 15. Spironolactone 12.5 mg oral every Saturday, Saturday, Saturday. 16. Metolazone 2.5 mg oral daily as needed for weight gain. 17. Methimazole 10 mg oral daily. 18. Lactulose 10 gm oral twice daily as needed for constipation. 19. Multivitamin 1 tablet oral daily. 20. [place] 5/325 one tablet oral every 6 hours as needed for [id number] pain. Discontinue home medications: 1. Prednisone. 2. Lisinopril. HISTORY OF PRESENT ILLNESS: Mr. Carvalho is a 76-year-old male with a complex past medical history including ischemic cardiomyopathy with ejection fraction of 20% to 25%, chronic kidney disease stage 3, COPD, hyperthyroidism, and history of V-tach who presented to the hospital with complaints of constipation and shortness of breath. Mr. Carvalho stated that his problems began when he stated having increased neck pain. He has a history of chronic neck pain with pain radiating down to his arms. This is secondary to bone spurs that he is not a candidate for surgery for. The patient was seen in the emergency room on June 08, at which time he was given Soma and tramadol and was encouraged to follow up with Dr. Haines. Per the patient's report, he did see Dr. Haines and the patient was given hydrocodone for pain relief. The patient was seen again in the emergency room on June 12 complaining of constipation and bloating that had not been responsive to laxatives at home. The patient had an abdomen and pelvis CT scan which showed no obstruction or significant constipation and he was discharged home. The patient did have a cervical spine CT at that time showing a moderate cervical spondylosis causing a moderate-to- severe spinal canal narrowing at C4 to 5 and 5 to 6. He also had a lumbar spine CT showing no acute changes. Patient was continued on his hydrocodone for pain and has been working with Dr. Haines for a regimen to relief his constipation. The patient had 2 bowel movements on the and had a bit of relief, but he continued to have persistent abdominal distention and discomfort and pressure from his abdomen making it difficult to breathe. He ultimately decided to call EMS and was brought to the emergency room. While in the emergency room, the patient's labs were basically consistent with previous results. He had no leukocytosis. He did have an elevated BUN and creatinine which were near his baseline. He had a normal troponin. He had a urinalysis showing no signs of an infection. He had a repeat abdomen and pelvis CT that showed moderate stool. The hospitalist were asked to evaluate the patient for admission. While in the hospital, the patient was placed on a bowel regimen in an attempt to assist him with relieving his constipation. He was continued on a multidrug cocktail to promote regular bowel movements in the setting of narcotic use. It was recommended to consider methylnaltrexone as an outpatient. As far as the patient's cervical spondylosis, he has intermittent chronic neck pain. He is not a candidate for surgery due to his significant comorbidities. He should be continued on a pain regimen. For the patient's chronic systolic heart failure, he had slight crackles and mild edema. He was continued on his current diuretic regimen as his blood pressures were soft and it was felt that he could not tolerate extra diuretics at this time. The patient had 2 self-limiting episodes of V-tach while here. He has an ICD in place. There was no recurrence. He was continued on his amiodarone and Mexiletine. For the patient 's chronic kidney disease, his BUN and creatinine have kind of been a little up and down, but overall appeared to be near his baseline. For the patient's hyperthyroidism, he was continued on his methimazole, although at a decreased dose as his TSH was 16.5. There were long conversations with the patient about his safety to return home alone and the patient has agreed to rehab. It also should be noted that the patient has a history of depression and had been taken off his Zoloft. He was restarted on his Zoloft during his stay here. Mr. Carvalho is stable for discharge to [facility] today. Vital signs are as follows: Temperature 97.8, heart rate 72, respiratory rate 16, O2 sat 100% on 4.5 L via nasal cannula, blood pressure 91/43. DISCHARGE PLAN: Mr. Carvalho will be discharged to [facility]. Activity as tolerated. He should be on a low sodium diet. As far as the patient's cervical spondylosis and chronic pain, he should be continued on [place] as needed for pain with a bowel regimen. For the patient's constipation, he has been continued on a bowel regimen. This may need to be further adjusted if he does not have regular bowel movements in the setting of his chronic narcotic use. If he continues to have significant constipation, I would consider methylnaltrexone as an outpatient. As far as the patient's chronic systolic heart failure, at this point he does not seem to be experiencing a heart failure exacerbation. I would monitor his weights routinely and adjust his diuretics as needed and as his creatinine and BP will allow. The patient did have 2 brief episodes of V-tach with no recurrence. He does have an ICD in place and should be continued on his home amiodarone and Mexiletine. For the patient's chronic kidney disease, I would cautiously use diuretics. He appears to be near his baseline at this point. For the patient's hyperthyroidism, I believe he came in on too much methimazole. His TSH was 16 here and his dose has been lowered. He may benefit from an endocrinology followup as an outpatient. For the patient's depression, he is to continued on the Zoloft. Blood pressures have been soft, if he continues to have soft blood pressure you may want to consider adjusting his medications. He is asymptomatic at this point. The patient should be seen by OT and PT and continue with therapy as indicated. The patient should return to the emergency room for changes in his shortness of breath or occurrence of chest pain. He should be seen in followup by his primary care provider, Dr. Haines, or a provider at [facility]. It is to note that he does have an appointment with Dr. Haines on June 28 at 09:40 a.m., previously scheduled. This is a summarized report of a complex medical history and hospital stay. For further details, please see the entire medical record. TIME SPENT: Time for this discharge was approximately 60 minutes, greater than half of that was spent with the patient discussing discharge plans and instructions. Reviewed by DYLAN COCHRAN 06/28/17 0709 [id number]/[facility] #: [id number] SADAF
[2017-06-27] MEDS: Finasteride TAB* 5 MG PO SCH (21:51)
[2017-06-27] MEDS: Doxazosin TAB* 2 MG PO SCH (21:51)
[2017-06-28] MEDS: Heparin VIAL(*) 5000 UNITS/ML VIAL (FIVE THOUSAND) SUBCUT SCH (05:26)
[2017-06-28 05:44] LABS: BUN/Creatinine Ratio 24.5 (8-20); Calcium 8.2 mg/dL (8.6-10.3); EGFR African American 28.6 (>60); EGFR Non-African American 22.3 (>60); Potassium 4.3 mmol/L (3.5-5.0)
--- NOTE | 2017-06-28 07:27 | PN ---
Subjective Date of Service: 06/28/17 Interval History: Patient seen and examined at bedside. Pt states that he has postnasal drip and nasal congestion today. Also reports right arm pain. Denies fever, chills, lightheadedness, shortness of breath, chest discomfort, N/V/D. Family History: Unchanged from Admission Social History: Unchanged from Admission Past Medical History: Unchanged from Admission Objective Active Medications: Hydrocodone Bitart/Acetaminophen ([place] 5-325 Tab*) 1 tab PO Q6H PRN Reason: PAIN Hydrocodone Bitart/Acetaminophen ([place] 5-325 Tab*) 2 tab PO Q4H PRN Reason: PAIN Allopurinol (Zyloprim Tab*) 100 mg PO DAILY FAY Amiodarone HCl (Cordarone Tab*) 100 mg PO DAILY FYA Bisacodyl (Dulcolax Supp*) 10 mg MD DAILY PRN Reason: CONSTIPATION Carisoprodol (Soma Tab*) 350 mg PO TID PRN Reason: PAIN Carvedilol (Coreg Tab*) 12.5 mg PO BID [facility] Digoxin (Lanoxin Tab*) 0.125 mg PO MOWEFR [facility] Doxazosin Mesylate (Cardura Tab*) 4 mg PO BEDTIME FAY Ferrous Sulfate (Ferrous Sulfate Tab*) 325 mg PO BID FAY Finasteride (Proscar Tab*) 5 mg PO BEDTIME FAY Folic Acid (Folvite Tab*) 1 mg PO DAILY [facility] Heparin Sodium (Porcine) (Heparin Vial(*)) 5,000 units SUBCUT Q8HR FAY Lactulose (Lactulose*) 30 ml PO TID PRN Reason: CONSTIPATION Methimazole (Tapazole Tab*) 10 mg PO DAILY FAY Mexiletine HCl (Mexitil Cap*) 200 mg PO TID FAY Mineral Oil (Fleet Mineral Oil Enema*) 1 bottle MD DAILY PRN Reason: CONSTIPATION Multivitamins ( Vitamin Tab*) 1 tab PO DAILY FAY Polyethylene Glycol/Electrolytes (Miralax*) 17 gm PO DAILY PRN Reason: CONSTIPATION Sertraline HCl (Zoloft*) 50 mg PO DAILY FAY Simethicone (Mylicon Tab*) 80 mg PO Q6H PRN Reason: gas distention Spironolactone (Aldactone Tab*) 12.5 mg PO MOWEFR FAY Torsemide (Demadex*) 30 mg PO DAILY FAY Tramadol HCl (Ultram*) 50 mg PO Q12HR PRN Reason: PAIN Vital Signs 06/27/17 06/27/17 06/27/17 07:27 08:00 09:49 Temperature 100.4 F Pulse Rate 79 Respiratory 18 18 16 Rate Blood Pressure 98/49 (mmHg) O2 Sat by Pulse 100 Oximetry 06/27/17 06/27/17 06/27/17 09:55 11:49 15:11 Temperature Pulse Rate Respiratory 16 Rate Blood Pressure 102/42 94/48 (mmHg) O2 Sat by Pulse Oximetry 06/27/17 06/27/17 06/27/17 16:01 19:56 20:00 Temperature 98.9 F 99.1 F Pulse Rate 74 74 Respiratory 16 16 15 Rate Blood Pressure 88/46 90/48 (mmHg) O2 Sat by Pulse 100 100 Oximetry 06/27/17 06/27/17 06/28/17 22:04 23:20 00:04 Temperature 98.6 F Pulse Rate 70 Respiratory 18 20 17 Rate Blood Pressure 92/44 (mmHg) O2 Sat by Pulse 100 Oximetry 06/28/17 06/28/17 06/28/17 01:14 03:42 05:48 Temperature 98.6 F 97.8 F 97.8 F Pulse Rate 70 72 72 Respiratory 20 16 16 Rate Blood Pressure 92/44 91/43 91/43 (mmHg) O2 Sat by Pulse 100 100 100 Oximetry Oxygen Devices in Use Now: Nasal Cannula - 4.5 L Appearance: NAD, sitting up in a chair Ears/Nose/Mouth/Throat: Mucous Membranes Moist Respiratory: Symmetrical Chest Expansion and Respiratory Effort, Clear to Auscultation Cardiovascular: RRR, - - 2/6 systolic murmur heard best at the right upper sternal border Extremities: - - 1+ bilateral LE edema Skin: - - Redness to coccyx, stage 2 skin injury to upper raiza cleft Neurological: Alert and Oriented x 3, NL Muscle Strength and Tone Lines/Tubes/Other Access: Clean, Dry and Intact Peripheral IV - site benign Nutrition: Taking PO's Result Diagrams: 06/27/17 06:42 06/28/17 05:15 Additional Lab and Data: Assess/Plan/Problems-Billing Assessment: Mr. Carvalho is a 76 yo male with a PMH of ischemic cardiomyopathy and EF 25-30% who was admitted on 9/23/17 with SOB felt to be secondary to constipation with abdominal distention. - Patient Problems (1) Cervical spondylitis Code(s): M46.92 - UNSPECIFIED INFLAMMATORY SPONDYLOPATHY, CERVICAL REGION SNOMED Code(s): 629860779 Comment: - Intermittent chronic neck pain. - Imaging done 06/12/17 shows severe narrowing at C4-5 and C5-6. Patient not a candidate for surgery given significant co-morbidities. - Continue pain meds and routine bowel regimen. (2) Constipation Code(s): K59.00 - CONSTIPATION, UNSPECIFIED SNOMED Code(s): 26702121 Comment: - Patient has not had a bowel movement yet today despite bowel regimen. No significant increase in abdominal pain, moved his bowels twice yesterday - Continue multi-drug cocktail to promote regular BMs in setting of narcotic use. - Consider Methylnaltrexone as outpatient. (3) Systolic CHF Code(s): I50.20 - UNSPECIFIED SYSTOLIC (CONGESTIVE) HEART FAILURE SNOMED Code( s): 839404083 Comment: - Appears euvolemic today - Daily weights and strict I+O's - Continue torsemide and spironolactone (4) Ventricular tachycardia Code(s): I47.2 - VENTRICULAR TACHYCARDIA SNOMED Code(s): 76075222 Comment: - Two self limited brief episodes, has ICD. No recurrence - Continue amiodarone and mexiletine. (5) CKD (chronic kidney disease) stage 3, GFR 30-59 ml/min Code(s): N18.3 - CHRONIC KIDNEY DISEASE, STAGE 3 (MODERATE) SNOMED Code(s): 346643966 Comment: - At baseline. - Will use diuretics judiciously. (6) Hyperthyroidism Code(s): E05.90 - THYROTOXICOSIS, UNSP WITHOUT THYROTOXIC CRISIS OR STORM SNOMED Code(s): 39924400 Comment: - T4 and T3 low. This is likely contributing to decreased gut motility. - Continue decreased methimazole, patient to follow up with his platform attendant at [place] to follow labs. (7) DVT prophylaxis Code(s): TWG6268 - SNOMED Code(s): 771498424 Comment: - SQ heparin. (8) Full code status Code(s): Z78.9 - OTHER SPECIFIED HEALTH STATUS SNOMED Code(s): 262261261 Status and Disposition: Inpatient. Concerns with compliance and self care at home based on behavior in hospital. Patient competent to refuse placement per psych. Pt is stable for discharge to [facility] today.
[2017-06-28] MEDS: Carvedilol TAB* 6.25 MG PO SCH (08:15)
[2017-06-28] MEDS: Prenatal Vitamin TAB PO SCH (08:45)
[2017-06-28] MEDS: Torsemide TAB* 20 MG PO SCH (08:45)
[2017-06-28] MEDS: MEXILETINE 200 MG PO SCH (08:45)
[2017-06-28] MEDS: Folic Acid TAB* 1 MG PO SCH (08:46)
[2017-06-28] MEDS: Sertraline* 50 MG TAB PO SCH (08:47)
[2017-06-28] MEDS: Allopurinol TAB* 100 MG PO SCH (08:47)
[2017-06-28] MEDS: Ferrous Sulfate TAB* 325 MG PO SCH (08:47)
[2017-06-28] MEDS: Carisoprodol TAB* 350 MG PO PRN (08:48)
[2017-06-28] MEDS: Amiodarone TAB* 200 MG PO SCH (08:48)
[2017-06-28] MEDS: Methimazole TAB* 5 MG PO SCH (08:49)
[2017-06-28 08:50] VITALS: BP 88/42
[2017-06-28] MEDS: Digoxin TAB* 0.125 MG PO SCH (08:52)
[2017-06-28] MEDS: Spironolactone TAB* 25 MG PO SCH (08:54)
== END 2017-06-28 10:23 | DRG 392 ==
LOC: ED 05:53 → MEDTELE 11:08 → OBSVTOIN 06-23 18:39
PROVIDERS: ADMIT Internal Medicine; ATTEND Internal Medicine
DX: K59.03 Drug induced constipation (principal); I47.2 Ventricular tachycardia; N17.9 Acute kidney failure, unspecified; I50.22 Chronic systolic (congestive) heart failure; I13.0 Hypertensive heart and chronic kidney disease with heart failure and stage 1 through stage 4 chronic kidney disease, or unspecified chronic kidney disease; J44.9 Chronic obstructive pulmonary disease, unspecified; N18.3 Chronic kidney disease, stage 3 (moderate); E05.90 Thyrotoxicosis, unspecified without thyrotoxic crisis or storm; M47.892 Other spondylosis, cervical region; K57.30 Diverticulosis of large intestine without perforation or abscess without bleeding; I25.5 Ischemic cardiomyopathy; N40.0 Benign prostatic hyperplasia without lower urinary tract symptoms; M10.9 Gout, unspecified; G47.33 Obstructive sleep apnea (adult) (pediatric); L40.9 Psoriasis, unspecified; F32.9 Major depressive disorder, single episode, unspecified; K44.9 Diaphragmatic hernia without obstruction or gangrene; T40.2X5A Adverse effect of other opioids, initial encounter; X58.XXXA Exposure to other specified factors, initial encounter; Z95.810 Presence of automatic (implantable) cardiac defibrillator; Z79.1 Long term (current) use of non-steroidal anti-inflammatories (NSAID); Z79.891 Long term (current) use of opiate analgesic; Z79.899 Other long term (current) drug therapy; Z88.1 Allergy status to other antibiotic agents; Z88.5 Allergy status to narcotic agent; Z88.2 Allergy status to sulfonamides; Z88.8 Allergy status to other drugs, medicaments and biological substances; Z82.49 Family history of ischemic heart disease and other diseases of the circulatory system; Z82.5 Family history of asthma and other chronic lower respiratory diseases; Z80.0 Family history of malignant neoplasm of digestive organs; Z87.891 Personal history of nicotine dependence; Y92.9 Unspecified place or not applicable; W18.30XA Fall on same level, unspecified, initial encounter; Y92.230 Patient room in hospital as the place of occurrence of the external cause; M25.561 Pain in right knee; D63.1 Anemia in chronic kidney disease
CPT/HCPCS: 36415; 71010; 74020; 74176; 74177; 80048; 80053; 81003; 82270; 83605; 83690; 83735; 83880; 84439; 84443; 84481; 84484; 85025; 85610; 85730; 90686; A9270-GY; G0378; J1644; J2060

== ENCOUNTER 2017-07-23 15:18 | Inpatient (IN) | payer MEDICARE ==
[2017-07-23] MEDS ORDERED: NS 0.9% 1000 ML* 1,000 ML IV ONE ×2 (15:38→17:24)
--- NOTE | 2017-07-23 16:01 | RAD ---
INDICATION: Altered mental status COMPARISON: June 21, 2017 TECHNIQUE: An AP portable view obtained at 1544 hours is submitted. FINDINGS: Bones/Soft Tissues: There are no acute bony findings. There is left-sided cardiac pacemaker/defibrillator. Cardiomediastinal: The cardiac silhouette is mildly prominent. Lungs: Small right basal infiltrate or atelectasis, unchanged. Pleura: Small moderate right-sided pleural effusion, unchanged. Other: None IMPRESSION: Right basilar airspace disease and right-sided effusion, unchanged
[2017-07-23 16:19] LABS: PCO2 Arterial 51 mmHg (35-45)
[2017-07-23 16:39] LABS: Add Diff/Slide Review? Slide Review Added; Comments Flag Yes; Hematocrit 23 % (42-52); Hemoglobin 7.6 g/dl (14.0-18.0); Mean Corpuscular HGB Conc 33 g/dl (31-36); Mean Corpuscular Hemoglobin 29 pg (27-31); Mean Corpuscular Volume 89 fL (80-94); Mean Platelet Volume 11 um3 (7.4-10.4); Red Blood Count 2.63 10^6/ul (4.0-5.4); Red Cell Distribution Width 16 % (10.5-15); White Blood Count 15.5 10^3/ul (3.5-10.8)
--- NOTE | 2017-07-23 16:39 | RAD ---
INDICATION: Altered mental status COMPARISON: None TECHNIQUE: Noncontrast axial source images were acquired from the skull base to the vertex. FINDINGS: Ventricles/sulci: The ventricles and cisterns are normal in size and configuration for age. Brain parenchyma: There is no focal parenchymal finding, evidence of intracranial mass, or intracranial mass effect. Intracranial hemorrhage:None. Extra-axial spaces: There are no abnormal extra axial fluid collections or evidence of extra-axial mass. Calvarium: There is no calvarial fracture or other calvarial abnormality. Scalp: There is no evidence of scalp or extracalvarial soft tissue abnormality. Paranasal sinuses/mastoid: The paranasal sinuses and mastoid air cells are clear. Other: None. IMPRESSION: No acute intracranial findings.
[2017-07-23 16:49] LABS: ALT 23 U/L (7-52); AST 21 U/L (13-39); Albumin 2.2 g/dL (3.2-5.2); Alkaline Phosphatase 51 U/L (34-104); Anion Gap 9 mmol/L (2-11); BUN/Creatinine Ratio 29.7 (8-20); Blood Urea Nitrogen 124 mg/dL (6-24); CO2 Carbon Dioxide 33 mmol/L (22-32); Calcium 7.8 mg/dL (8.6-10.3); Chloride 95 mmol/L (101-111); Creatine Kinase 146 U/L (10-223); EGFR African American 17.8 (>60); EGFR Non-African American 13.9 (>60); Globulin 3.4 g/dL (2-4); Glucose 139 mg/dL (70-100); Magnesium 2.2 mg/dL (1.9-2.7); Potassium 4.1 mmol/L (3.5-5.0); Sodium 137 mmol/L (133-145); Total Protein 5.6 g/dL (6.4-8.9); Troponin I 0.19 ng/mL (<0.04)
[2017-07-23 17:02] LABS: Acetaminophen < 15 mcg/mL; Alcohol < 10 mg/dL (<10)
[2017-07-23 17:15] LABS: TSH (Thyroid Stimulating Horm) 6.06 mcIU/mL (0.34-5.60)
[2017-07-23] MEDS ORDERED: Levofloxacin 750 MG IVPREMIX(* 750 MG/150 ML BAG IVPB ONE (17:27)
--- NOTE | 2017-07-23 18:11 | ED ---
Edwardo Holland Benjamin, scribed for Jack Vicente MD on 07/23/17 at 1542 . Altered Mental Status - HPI Summary HPI Summary: 77yo male BIBA for AMS, according to Federico. Pt is oriented in place, but not in time. Pt is confused, unable to obtain full HPI. LEVEL 5 CAVEAT -AMS. - History Of Current Complaint Chief Complaint: EDAltMentalStatus Stated Complaint: AMS Time Seen by Provider: 07/23/17 15:23 Hx Obtained From: EMS Hx From Patient Unobtainable Due To: Altered Mental Status Onset/Duration: Unknown Aggravating Factor(s): Unknown Alleviating Factor(s): Unknown - Allergies/Home Medications Allergies/Adverse Reactions: Allergies Allergy/AdvReac Type Severity Reaction Status Date / Time Oxycodone Allergy Severe See Comment Verified 06/12/17 05:00 Hydralazine Allergy Unknown UNK Verified 06/12/17 05:00 Isosorbide Nitrate Allergy Unknown UNK Verified 06/12/17 05:00 [Isosorbide] Prednisone Allergy Unknown Verified 06/12/17 05:00 Reaction Details Statins Allergy Rash Verified 06/12/17 05:00 Sulfamethoxazole Allergy Unknown Verified 06/12/17 05:00 w/Trimethoprim Reaction [From Bactrim] Details Clindamycin AdvReac Intermediate Nausea And Verified 06/12/17 05:00 Vomiting Erythromycin AdvReac Intermediate Nausea Verified 06/12/17 05:00 Atorvastatin [From Lipitor] AdvReac Unknown Dizziness Verified 06/12/17 05:00 Cephalexin [From Keflex] AdvReac Nausea And Verified 06/12/17 05:00 Vomiting Home Medications: Home Medications Aspirin EC Low Dose* [Ecotrin EC Low Dose 81 MG*] 81 mg PO DAILY 07/23/17 [ History Confirmed 07/23/17] Carisoprodol TAB* [Soma TAB*] 350 mg PO TID PRN 07/23/17 [History Confirmed ] Fluticasone NASAL SPRAY 50MCG* [Flonase NASAL SPRAY 50MCG*] 2 spray BOTH NARES DAILY 07/23/17 [History Confirmed 07/23/17] HYDROcodone/ACETAMIN 5-325 MG* [[place] 5-325 TAB*] 1 tab PO Q6HR PRN MDD 4 tabs 07/23/17 [History Confirmed 07/23/17] Ipratropium [place] (Nasal) [Ipratropium [place]] 2 spray BOTH NARES BID [History Confirmed 07/23/17] Lactulose* 15 ml PO BID PRN 07/23/17 [History Confirmed 07/23/17] Lisinopril TAB* [Prinivil TAB*] 7.5 mg PO DAILY 07/23/17 [History Confirmed ] Methimazole TAB* [Tapazole TAB*] 10 mg PO QID 07/23/17 [History Confirmed ] Metolazone TAB* [Zaroxolyn TAB*] 2.5 mg PO DAILY 07/23/17 [History Confirmed ] Multivitamins/Minerals TAB* [Theragran/minerals TAB*] 1 tab PO DAILY 07/23/17 [ History Confirmed 07/23/17] Nitroglycerin [Nitro-Bid] 2 % TOPICAL BID 07/23/17 [History Confirmed 07/23/17] Spironolactone TAB* [Aldactone TAB*] 12.5 mg PO DAILY 07/23/17 [History Confirmed 07/23/17] Thiamine TAB* [Vitamin B-1 TAB*] 100 mg PO DAILY 07/23/17 [History Confirmed ] traMADol TAB* [Ultram*] 50 - 100 mg PO QID MDD 400 mg 07/23/17 [History Confirmed 07/23/17] PMH/Surg Hx/FS Hx/Imm Hx Endocrine/Hematology History: Reports: Hx Diabetes - "borderline" - no medication, Hx Thyroid Disease - hyperthyroid Denies: Hx Anticoagulant Therapy, Hx Anemia Cardiovascular History: Reports: Hx Auto Implanted Cardiovert Defib, Hx Congestive Heart Failure - EF 25%, Hx Hypertension, Hx Pacemaker/ICD, Other Cardiovascular Problems/Disorders - CARDIOMYOPATHY, VENTRICULAR TECHYCARDIA, pleural effusions Denies: Hx Cardiac Arrest, Hx Congenital Heart Disease, Hx Deep Vein Thrombosis, Hx Embolism Respiratory History: Reports: Hx Chronic Obstructive Pulmonary Disease (COPD), Hx Pleural Effusion, Hx Sleep Apnea, Other Respiratory Problems/Disorders - SLEEP APNEA Denies: Hx Asthma GI History: Reports: Hx Hiatal Hernia, Other GI Disorders - POLPYS Denies: Hx Cirrhosis, Hx Crohn's Disease, Hx Diverticulosis, Hx Gall Bladder Disease, Hx Gastroesophageal Reflux Disease, Hx Gastrointestinal Bleed, Hx Jaundice History: Reports: Hx Benign Prostatic Hyperplasia, Hx Chronic Renal Failure, Hx Kidney Infection, Hx Renal Disease, Other Problems/Disorders - EPIDYDIMITIS Musculoskeletal History: Reports: Hx Arthritis, Hx Gout Sensory History: Reports: Hx Contacts or Glasses Denies: Hx Cataracts, Hx Glaucoma, Hx Legally Blind, Hx Macular Degeneration , Hx Deafness, Hx Hearing Aid, Other Sensory Impairments Opthamlomology History: Reports: Hx Contacts or Glasses Denies: Hx Cataracts, Hx Glaucoma, Hx Legally Blind, Hx Macular Degeneration , Other Sensory Impairments Neurological History: Reports: Other Neuro Impairments/Disorders - CERVICAL SPONDALOSIS Denies: Hx Dementia, Hx Seizures Psychiatric History: Reports: Hx Anxiety, Hx Depression Denies: Hx Attention Deficit Hyperactivity Disorder, Hx Eating Disorder, Hx Inpatient Treatment, Hx Community Mental Health Tx, Hx Bipolar Disorder, Hx Substance Abuse - Cancer History Cancer Type, Location and 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 - Surgical History Surgery Procedure, Year, and Place: pacer/defibrillator; thoracentesis 2014 Hx Anesthesia Reactions: No - Immunization History Date of Tetanus Vaccine: Unk Date of Influenza Vaccine: 08/14 Infectious Disease History: No Infectious Disease History: Denies: Hx Hepatitis, Hx Human Immunodeficiency Virus (HIV), Hx of Known/ Suspected MRSA, Traveled Outside the [place] in Last 30 Days - Family History Known Family History: Positive: Cardiac Disease, Diabetes - Social History Alcohol Use: Rare Hx Substance Use: No Substance Use Type: Reports: None Hx Tobacco Use: Yes Smoking Status (MU): Former Smoker Type: Cigarettes Review of Systems - ROS Summary Review of Systems Summary: LEVEL 5 CAVEAT - AMS. Neurological: Other - AMS All Other Systems Reviewed And Are Negative: No Physical Exam - Summary Physical Exam Summary: VITAL SIGNS: Reviewed. GENERAL: Patient is a well-developed and nourished male who is lying comfortable in the stretcher. Patient is not in any acute respiratory distress. HEAD AND FACE: No signs of trauma. No ecchymosis, hematomas or skull depressions. No sinus tenderness.Dry oral mucosa. EYES: PERRLA, EOMI x 2, No injected conjunctiva, no nystagmus. EARS: Hearing grossly intact. Ear canals and tympanic membranes are within normal limits. MOUTH: Oropharynx within normal limits. NECK: Supple, trachea is midline, no adenopathy, no JVD, no carotid bruit, no c- spine tenderness, neck with full ROM. CHEST: Symmetric, no tenderness at palpation LUNGS: Clear to auscultation bilaterally. No wheezing. Bilateral crackles. CVS: Regular rate and rhythm, S1 and S2 present, no murmurs or gallops appreciated. ABDOMEN: Soft, non-tender. No signs of distention. No rebound no guarding, and no masses palpated. Bowel sounds are normal. EXTREMITIES: FROM in all major joints, no edema, no cyanosis or clubbing. NEURO: Oriented only to place. Pt is confused. SKIN: Dry and warm. Triage Information Reviewed: Yes Vital Signs On Initial Exam: Initial Vitals Temp Pulse Resp BP Pulse Ox 97.3 F 88 15 95/50 97 07/23/17 15:25 07/23/17 15:25 07/23/17 15:25 07/23/17 15:25 07/23/17 15:25 Vital Signs Reviewed: Yes Completion Of Physical Exam Limited Due To: Altered Mental Status, Level 5 Diagnostics - Vital Signs Vital Signs Temp Pulse Resp BP Pulse Ox 07/23/17 15:25 97.3 F 88 15 95/50 97 - Laboratory Lab Results: Lab Results 07/23/17 07/23/17 07/23/17 Range/Units 16:10 16:17 16:17 WBC (3.5-10.8) 10^3/ul RBC (4.0-5.4) 10^6/ul Hgb (14.0-18.0) g/dl Hct (42-52) % MCV (80-94) fL MCH (27-31) pg MCHC (31-36) g/dl RDW (10.5-15) % Plt Count (150-450) 10^3/ul MPV (7.4-10.4) um3 Neut % (Auto) (38-83) % Lymph % (Auto) (25-47) % [place] % (Auto) (1-9) % Eos % (Auto) (0-6) % Baso % (Auto) (0-2) % Absolute Neuts (auto) (1.5-7.7) 10^3/ul Absolute Lymphs (auto) (1.0-4.8) 10^3/ul Absolute Monos (auto) (0-0.8) 10^3/ul Absolute Eos (auto) (0-0.6) 10^3/ul Absolute Basos (auto) (0-0.2) 10^3/ul Absolute Nucleated RBC 10^3/ul Nucleated RBC % INR (Anticoag Therapy) (0.89-1.11) Patient Temperature Not Reportable ABG pH 7.45 (7.35-7.45) ABG pH (Temp Correct) Not Reportable ABG pCO2 51 H (35-45) mmHg ABG pCO2 (Temp Corrct Not Reportable ABG pO2 95 (80-100) mmHg ABG pO2 (Temp Correct Not Reportable ABG HCO3 33.0 H (19-31) mmol/L ABG O2 Saturation 98.9 H (95-98) % ABG Base Excess 10.3 H (-2.0-2.0) Respiration Rate Not Reportable O2 Delivery Device N/c Ventilator Type Not Reportable Vent Mode Not Reportable FiO2 Not Reportable Inspiratory Time Not Reportable PEEP Not Reportable Pressure Support Not Reportable Pressure Control Not Reportable EPAP Not Reportable IPAP Not Reportable BiPAP Not Reportable Sodium 137 (133-145) mmol/L Potassium 4.1 (3.5-5.0) mmol/L Chloride 95 L (101-111) mmol/L Carbon Dioxide 33 H (22-32) mmol/L Anion Gap 9 (2-11) mmol/L BUN 124 H (6-24) mg/dL Creatinine 4.18 H (0.67-1.17) mg/dL Est GFR ( Amer) 17.8 (>60) Est GFR (Non-Af Amer) 13.9 (>60) BUN/Creatinine Ratio 29.7 H (8-20) Glucose 139 H (70-100) mg/dL Lactic Acid (0.5-2.0) mmol/L Calcium 7.8 L (8.6-10.3) mg/dL Magnesium 2.2 (1.9-2.7) mg/dL Total Bilirubin 1.20 H (0.2-1.0) mg/dL AST 21 (13-39) U/L ALT 23 (7-52) U/L Alkaline Phosphatase 51 (34-104) U/L Ammonia 41 (16-53) mol/L Total Creatine Kinase 146 (10-223) U/L Troponin I 0.19 H* (<0.04) ng/mL Total Protein 5.6 L (6.4-8.9) g/dL Albumin 2.2 L (3.2-5.2) g/dL Globulin 3.4 (2-4) g/dL Albumin/Globulin Ratio 0.6 L (1-3) TSH 6.06 H (0.34-5.60) mcIU/mL Acetaminophen < 15 mcg/mL Serum Alcohol < 10 (<10) mg/dL 07/23/17 07/23/17 07/23/17 Range/Units 16:17 16:17 16:17 WBC 15.5 H (3.5-10.8) 10^3/ul RBC 2.63 L (4.0-5.4) 10^6/ul Hgb 7.6 L (14.0-18.0) g/dl Hct 23 L (42-52) % MCV 89 (80-94) fL MCH 29 (27-31) pg MCHC 33 (31-36) g/dl RDW 16 H (10.5-15) % Plt Count 72 L D (150-450) 10^3/ul MPV 11 H (7.4-10.4) um3 Neut % (Auto) 94.7 H (38-83) % Lymph % (Auto) 2.6 L (25-47) % [place] % (Auto) 2.3 (1-9) % Eos % (Auto) 0 (0-6) % Baso % (Auto) 0.4 (0-2) % Absolute Neuts (auto) 14.7 H (1.5-7.7) 10^3/ul Absolute Lymphs (auto) 0.4 L (1.0-4.8) 10^3/ul Absolute Monos (auto) 0.4 (0-0.8) 10^3/ul Absolute Eos (auto) 0 (0-0.6) 10^3/ul Absolute Basos (auto) 0.1 (0-0.2) 10^3/ul Absolute Nucleated RBC 0 10^3/ul Nucleated RBC % 0 INR (Anticoag Therapy) 1.09 (0.89-1.11) Patient Temperature ABG pH (7.35-7.45) ABG pH (Temp Correct) ABG pCO2 (35-45) mmHg ABG pCO2 (Temp Corrct ABG pO2 (80-100) mmHg ABG pO2 (Temp Correct ABG HCO3 (19-31) mmol/L ABG O2 Saturation (95-98) % ABG Base Excess (-2.0-2.0) Respiration Rate O2 Delivery Device Ventilator Type Vent Mode FiO2 Inspiratory Time PEEP Pressure Support Pressure Control EPAP IPAP BiPAP Sodium (133-145) mmol/L Potassium (3.5-5.0) mmol/L Chloride (101-111) mmol/L Carbon Dioxide (22-32) mmol/L Anion Gap (2-11) mmol/L BUN (6-24) mg/dL Creatinine (0.67-1.17) mg/dL Est GFR ( Amer) (>60) Est GFR (Non-Af Amer) (>60) BUN/Creatinine Ratio (8-20) Glucose (70-100) mg/dL Lactic Acid 1.0 (0.5-2.0) mmol/L Calcium (8.6-10.3) mg/dL Magnesium (1.9-2.7) mg/dL Total Bilirubin (0.2-1.0) mg/dL AST (13-39) U/L ALT (7-52) U/L Alkaline Phosphatase (34-104) U/L Ammonia (16-53) mol/L Total Creatine Kinase (10-223) U/L Troponin I (<0.04) ng/mL Total Protein (6.4-8.9) g/dL Albumin (3.2-5.2) g/dL Globulin (2-4) g/dL Albumin/Globulin Ratio (1-3) TSH (0.34-5.60) mcIU/mL Acetaminophen mcg/mL Serum Alcohol (<10) mg/dL Result Diagrams: 07/23/17 16:17 07/23/17 16:17 Lab Statement: Any lab studies that have been ordered have been reviewed, and results considered in the medical decision making process. - Radiology CXR Xray Interpretation: No Acute Changes - IMPRESSION: Right basilar airspace disease and right-sided effusion, unchanged Radiology Interpretation Completed By: Radiologist - ED physician has reviewed this radiology report and agrees. - CT CT Brain CT Interpretation: No Acute Changes CT Interpretation Completed By: Radiologist - ED physician has reviewed this radiology report and agrees. - EKG 1638. Cardiac Rate: NL - 78bpm EKG Interpretation: atrial-ventricular paced EKG Comparison: No Significant Change - similar to 06/12/17. Altered Mental Statu Course/Dx - Course Assessment/Plan: In the ED course an IV access was obtained. Patient was placed in a electronic imager. Patient was started with IV fluids since patient is slightly hypotensive. Labs without any significant abnormality except for WBC s 15.5, H/H of 7.6 / 23, Platelets 72. Acute on chronic renal failure, Troponin #1: 0.19. Rectal exam no gross blood or melena. EKG unchanged from previous. CXR impression: Right bi-basilar airspace disease and right sided pleural effusion. Head CT impression: No acute findings. In the ED course he was given Zosyn and Levaquin for his pneumonia. I discuss my physical exam, findings and test results with Neva Callahan DROP FORGE OPERATOR from the hospitalist services and she agrees to admit patient to his services. Patient is hemodynamically stable alert but not oriented. - Diagnoses Differential Diagnosis/HQI/PQRI: CVA, Hypoglycemia, Hypoxia, Medication Reaction , Seizure, TIA Discharge Diagnoses: Pneumonia, Pleural effusion, Altered awareness, transient, Acute on chronic renal failure Discharge - Discharge Plan Condition: Stable Disposition: ADMITTED TO [facility] documentation as recorded by the Edwardo munson Benjamin accurately reflects the service I personally performed and the decisions made by me, Jack Vicente MD.
--- NOTE | 2017-07-23 18:52 | ADMNOTE ---
Subjective Date of Service: 07/23/17 Interval History: ADMISSION HISTORY AND PHYSICAL EXAM: Allergies Allergy/AdvReac Type Severity Reaction Status Date / Time Oxycodone Allergy Severe See Comment Verified 06/12/17 05:00 Hydralazine Allergy Unknown UNK Verified 06/12/17 05:00 Isosorbide Nitrate Allergy Unknown UNK Verified 06/12/17 05:00 [Isosorbide] Prednisone Allergy Unknown Verified 06/12/17 05:00 Reaction Details Statins Allergy Rash Verified 06/12/17 05:00 Sulfamethoxazole Allergy Unknown Verified 06/12/17 05:00 w/Trimethoprim Reaction [From Bactrim] Details Clindamycin AdvReac Intermediate Nausea And Verified 06/12/17 05:00 Vomiting Erythromycin AdvReac Intermediate Nausea Verified 06/12/17 05:00 Atorvastatin [From Lipitor] AdvReac Unknown Dizziness Verified 06/12/17 05:00 Cephalexin [From Keflex] AdvReac Nausea And Verified 06/12/17 05:00 Vomiting Home Medications Medication Instructions Recorded Confirmed Type Digoxin TAB* [Lanoxin TAB*] 0.125 mg PO MOWEFR 12/13/12 07/23/17 History Folic Acid TAB* [Folvite TAB*] 1 mg PO DAILY 12/13/12 07/23/17 History Doxazosin TAB* [Cardura TAB*] 4 mg PO BEDTIME 01/20/14 07/23/17 History Carvedilol TAB* [Coreg TAB*] 12.5 mg PO BID WITH MEALS 08/15/15 07/23/17 History Finasteride TAB* [Proscar TAB*] 5 mg PO BEDTIME 08/15/15 07/23/17 History Torsemide TAB* [Demadex 20 MG*] 30 mg PO DAILY 01/18/16 07/23/17 History Allopurinol TAB* [Zyloprim 100 MG 100 mg PO DAILY 07/04/16 07/23/17 History TAB*] Ferrous Sulfate TAB* 325 mg PO BID 06/08/17 07/23/17 History Mexiletine CAP* [Mexitil CAP*] 200 mg PO TID 06/08/17 07/23/17 History Aspirin EC Low Dose* [Ecotrin EC 81 mg PO DAILY 07/23/17 07/23/17 History Low Dose 81 MG*] Carisoprodol TAB* [Soma TAB*] 350 mg PO TID PRN 07/23/17 07/23/17 History Fluticasone NASAL SPRAY 50MCG* 2 spray BOTH NARES DAILY 07/23/17 07/23/17 History [Flonase NASAL SPRAY 50MCG*] HYDROcodone/ACETAMIN 5-325 MG* 1 tab PO Q6HR PRN MDD 4 tabs 07/23/17 07/23/17 History [[place] 5-325 TAB*] Ipratropium [place] (Nasal) 2 spray BOTH NARES BID 07/23/17 07/23/17 History [Ipratropium [place]] Lactulose* 15 ml PO BID PRN 07/23/17 07/23/17 History Lisinopril TAB* [Prinivil TAB*] 7.5 mg PO DAILY 07/23/17 07/23/17 History Methimazole TAB* [Tapazole TAB*] 10 mg PO QID 07/23/17 07/23/17 History Metolazone TAB* [Zaroxolyn TAB*] 2.5 mg PO DAILY 07/23/17 07/23/17 History Multivitamins/Minerals TAB* 1 tab PO DAILY 07/23/17 07/23/17 History [Theragran/minerals TAB*] Nitroglycerin [Nitro-Bid] 2 % TOPICAL BID 07/23/17 07/23/17 History Spironolactone TAB* [Aldactone 12.5 mg PO DAILY 07/23/17 07/23/17 History TAB*] Thiamine TAB* [Vitamin B-1 TAB*] 100 mg PO DAILY 07/23/17 07/23/17 History traMADol TAB* [Ultram*] 50 - 100 mg PO QID MDD 400 mg 07/23/17 07/23/17 History HPI: The patient was sent to the ED from [facility] due to AMS. He is unable to give any meaningful history. Family History: Findings - Sister has nonischeic cardiomyopathy and LVAD. Father had gastric ca, mother had COPD and heart failure. Social History: Findings - Justino and Brooklyn Mckeont are his HCP ([phone]) Past Medical History: Findings - Cardiomyopathy with Vtach & ICD, hyperthyroid, COPD, BPH, gout, psoriasis, BPH Review of Systems - Measurements Intake and Output: Intake and Output Last 24 Hours 07/21/17 07/22/17 07/23/17 07/24/17 06:59 06:59 06:59 06:59 Weight 160 lb - Review of Systems General Comments: Not obtainable due to patient's AMS. Objective Active Medications: Levofloxacin/Dextrose (Levaquin 750 Mg Ivpremix(*)) 750 mg in 150 mls @ 100 mls /hr IVPB ED ONCE ONE Stop: 07/23/17 18:56 Last Admin: 07/23/17 18:23 Dose: 100 mls/hr Vital Signs 07/23/17 07/23/17 07/23/17 15:25 15:29 15:30 Temperature 97.3 F Pulse Rate 88 88 Respiratory 15 18 Rate Blood Pressure 95/50 95/59 (mmHg) O2 Sat by Pulse 97 97 Oximetry 07/23/17 07/23/17 07/23/17 16:00 17:00 17:30 Temperature 97.1 F Pulse Rate 87 Respiratory 21 Rate Blood Pressure 104/55 (mmHg) O2 Sat by Pulse 93 Oximetry Oxygen Devices in Use Now: Nasal Cannula Appearance: Partly up on ED stretcher. Lethargic but arouses easily. Somewhat restless. Eyes: No Scleral Icterus Neck: NL Appearance and Movements; NL JVP, No Thyroid Enlargement, Masses Respiratory: Symmetrical Chest Expansion and Respiratory Effort, - - Very moist respirations and occ moist cough, diffuse rales Cardiovascular: NL Sounds; No Murmurs; No JVD, RRR, No Edema Abdominal: NL Sounds; No Tenderness; No Distention, No Hepatosplenomegaly Extremities: No Edema, No Clubbing, Cyanosis, - Skin: No Nodules or Sclerosis, - - scattered red macules on forehead Neurological: NL Sensation, - - Disoriented. Diminished hearing. No tremor. Result Diagrams: 07/23/17 16:17 07/23/17 16:17 Additional Lab and Data: Lab Results 07/23/17 07/23/17 07/23/17 Range/Units 16:10 16:17 16:17 WBC (3.5-10.8) 10^3/ul RBC (4.0-5.4) 10^6/ul Hgb (14.0-18.0) g/dl Hct (42-52) % MCV (80-94) fL MCH (27-31) pg MCHC (31-36) g/dl RDW (10.5-15) % Plt Count (150-450) 10^3/ul MPV (7.4-10.4) um3 Neut % (Auto) (38-83) % Lymph % (Auto) (25-47) % [place] % (Auto) (1-9) % Eos % (Auto) (0-6) % Baso % (Auto) (0-2) % Absolute Neuts (auto) (1.5-7.7) 10^3/ul Absolute Lymphs (auto) (1.0-4.8) 10^3/ul Absolute Monos (auto) (0-0.8) 10^3/ul Absolute Eos (auto) (0-0.6) 10^3/ul Absolute Basos (auto) (0-0.2) 10^3/ul Absolute Nucleated RBC 10^3/ul Nucleated RBC % INR (Anticoag Therapy) (0.89-1.11) Patient Temperature Not Reportable ABG pH 7.45 (7.35-7.45) ABG pH (Temp Correct) Not Reportable ABG pCO2 51 H (35-45) mmHg ABG pCO2 (Temp Corrct Not Reportable ABG pO2 95 (80-100) mmHg ABG pO2 (Temp Correct Not Reportable ABG HCO3 33.0 H (19-31) mmol/L ABG O2 Saturation 98.9 H (95-98) % ABG Base Excess 10.3 H (-2.0-2.0) Respiration Rate Not Reportable O2 Delivery Device N/c Ventilator Type Not Reportable Vent Mode Not Reportable FiO2 Not Reportable Inspiratory Time Not Reportable PEEP Not Reportable Pressure Support Not Reportable Pressure Control Not Reportable EPAP Not Reportable IPAP Not Reportable BiPAP Not Reportable Sodium 137 (133-145) mmol/L Potassium 4.1 (3.5-5.0) mmol/L Chloride 95 L (101-111) mmol/L Carbon Dioxide 33 H (22-32) mmol/L Anion Gap 9 (2-11) mmol/L BUN 124 H (6-24) mg/dL Creatinine 4.18 H (0.67-1.17) mg/dL Est GFR ( Amer) 17.8 (>60) Est GFR (Non-Af Amer) 13.9 (>60) BUN/Creatinine Ratio 29.7 H (8-20) Glucose 139 H (70-100) mg/dL Lactic Acid (0.5-2.0) mmol/L Calcium 7.8 L (8.6-10.3) mg/dL Magnesium 2.2 (1.9-2.7) mg/dL Total Bilirubin 1.20 H (0.2-1.0) mg/dL AST 21 (13-39) U/L ALT 23 (7-52) U/L Alkaline Phosphatase 51 (34-104) U/L Ammonia 41 (16-53) mol/L Total Creatine Kinase 146 (10-223) U/L Troponin I 0.19 H* (<0.04) ng/mL Total Protein 5.6 L (6.4-8.9) g/dL Albumin 2.2 L (3.2-5.2) g/dL Globulin 3.4 (2-4) g/dL Albumin/Globulin Ratio 0.6 L (1-3) TSH 6.06 H (0.34-5.60) mcIU/mL Acetaminophen < 15 mcg/mL Serum Alcohol < 10 (<10) mg/dL 07/23/17 07/23/17 07/23/17 Range/Units 16:17 16:17 16:17 WBC 15.5 H (3.5-10.8) 10^3/ul RBC 2.63 L (4.0-5.4) 10^6/ul Hgb 7.6 L (14.0-18.0) g/dl Hct 23 L (42-52) % MCV 89 (80-94) fL MCH 29 (27-31) pg MCHC 33 (31-36) g/dl RDW 16 H (10.5-15) % Plt Count 72 L D (150-450) 10^3/ul MPV 11 H (7.4-10.4) um3 Neut % (Auto) 94.7 H (38-83) % Lymph % (Auto) 2.6 L (25-47) % [place] % (Auto) 2.3 (1-9) % Eos % (Auto) 0 (0-6) % Baso % (Auto) 0.4 (0-2) % Absolute Neuts (auto) 14.7 H (1.5-7.7) 10^3/ul Absolute Lymphs (auto) 0.4 L (1.0-4.8) 10^3/ul Absolute Monos (auto) 0.4 (0-0.8) 10^3/ul Absolute Eos (auto) 0 (0-0.6) 10^3/ul Absolute Basos (auto) 0.1 (0-0.2) 10^3/ul Absolute Nucleated RBC 0 10^3/ul Nucleated RBC % 0 INR (Anticoag Therapy) 1.09 (0.89-1.11) Patient Temperature ABG pH (7.35-7.45) ABG pH (Temp Correct) ABG pCO2 (35-45) mmHg ABG pCO2 (Temp Corrct ABG pO2 (80-100) mmHg ABG pO2 (Temp Correct ABG HCO3 (19-31) mmol/L ABG O2 Saturation (95-98) % ABG Base Excess (-2.0-2.0) Respiration Rate O2 Delivery Device Ventilator Type Vent Mode FiO2 Inspiratory Time PEEP Pressure Support Pressure Control EPAP IPAP BiPAP Sodium (133-145) mmol/L Potassium (3.5-5.0) mmol/L Chloride (101-111) mmol/L Carbon Dioxide (22-32) mmol/L Anion Gap (2-11) mmol/L BUN (6-24) mg/dL Creatinine (0.67-1.17) mg/dL Est GFR ( Amer) (>60) Est GFR (Non-Af Amer) (>60) BUN/Creatinine Ratio (8-20) Glucose (70-100) mg/dL Lactic Acid 1.0 (0.5-2.0) mmol/L Calcium (8.6-10.3) mg/dL Magnesium (1.9-2.7) mg/dL Total Bilirubin (0.2-1.0) mg/dL AST (13-39) U/L ALT (7-52) U/L Alkaline Phosphatase (34-104) U/L Ammonia (16-53) mol/L Total Creatine Kinase (10-223) U/L Troponin I (<0.04) ng/mL Total Protein (6.4-8.9) g/dL Albumin (3.2-5.2) g/dL Globulin (2-4) g/dL Albumin/Globulin Ratio (1-3) TSH (0.34-5.60) mcIU/mL Acetaminophen mcg/mL Serum Alcohol (<10) mg/dL Assess/Plan/Problems-Billing Assessment: - Patient Problems (1) Cardiomyopathy Current Visit: Yes Status: Acute Code(s): I42.9 - CARDIOMYOPATHY, UNSPECIFIED SNOMED Code(s): 73010243 Comment: I suspect low cardiac output is comprimising his renal function. Paced rhythm 07/23. Stop IV fluids as they may increase his dyspnea. (2) Anemia, chronic disease Current Visit: No Status: Acute Code(s): D63.8 - ANEMIA IN OTHER CHRONIC DISEASES CLASSIFIED ELSEWHERE SNOMED Code(s): 000965675 Comment: Related to renal failure. (3) MARIA VICTORIA (acute kidney injury) Current Visit: Yes Status: Acute Code(s): N17.9 - ACUTE KIDNEY FAILURE, UNSPECIFIED SNOMED Code(s): 52401712 Comment: May be due to low cardiac output. Uremic metabolic encephalopathy. (4) Aspiration into respiratory tract Current Visit: Yes Status: Acute Code(s): T17.908A - UNSP FB IN RESP TRACT, PART UNSP CAUSING OTH INJURY, INIT SNOMED Code(s): 115020073 Comment: Clinical picture could be compatible with aspiration related to his encephalopathy. NPO ordered. (5) Hyperthyroidism Current Visit: No Status: Acute Code(s): E05.90 - THYROTOXICOSIS, UNSP WITHOUT THYROTOXIC CRISIS OR STORM SNOMED Code(s): 89389904 Comment: Hold methimazole, TSH still elevated. (6) End of life care Current Visit: Yes Status: Acute Code(s): Z51.5 - ENCOUNTER FOR PALLIATIVE CARE SNOMED Code(s): 026599511
--- NOTE | 2017-07-23 20:25 | PN ---
Progress Note - Progress Note Date of Service: 07/23/17 Note: Evaluated Mr Maia in ED after check out from Génesis Banks MD. His HCP was present. Findings and concerns regarding his condition discussed. She was leaning toward comfort-only care, but after speaking with his sister in [place] decided to go with conservative medical care via IVFs, IV ABXs, and monitoring of vitals/labs with the idea that if he fails to rally after 24-48h further consideration for converting to comfort-only care will be given. As such , will order AM labs, IVFs, and continue his piperacillin/tazobactam.
[2017-07-23] MEDS ORDERED: NS 0.9% 1000 ML* 1,000 ML IV SCH (20:30)
[2017-07-23] MEDS ORDERED: Haloperidol INJ IV/IM* 5 MG/ML AMP IV SLOW PU PRN (20:50)
[2017-07-23 23:30] LABS: Prealbumin 7 mg/dL (18-38)
[2017-07-24] MEDS ORDERED: LORazepam INJ* 2 MG/ML 1 ML VIAL IV ONE (00:19)
[2017-07-24 07:07] LABS: Hematocrit 25 % (42-52); Mean Corpuscular HGB Conc 32 g/dl (31-36); Mean Corpuscular Hemoglobin 29 pg (27-31); Mean Corpuscular Volume 91 fL (80-94); Mean Platelet Volume 12 um3 (7.4-10.4); Red Blood Count 2.74 10^6/ul (4.0-5.4); Red Cell Distribution Width 17 % (10.5-15)
[2017-07-24 07:08] LABS: Comments Flag Yes
[2017-07-24 07:30] LABS: Troponin I 0.14 ng/mL (<0.04)
[2017-07-24 07:44] LABS: BUN/Creatinine Ratio 30.4 (8-20); Calcium 7.9 mg/dL (8.6-10.3); EGFR African American 17.5 (>60); EGFR Non-African American 13.6 (>60); Potassium 4.2 mmol/L (3.5-5.0)
--- NOTE | 2017-07-24 08:13 | PN ---
Subjective Date of Service: 07/24/17 Interval History: Patient not able to make his needs known. Family History: Findings - Sister has nonischeic cardiomyopathy and LVAD. Father had gastric ca, mother had COPD and heart failure. Social History: Findings - Justino and Brooklyn Rocha are his HCP ([phone]) Past Medical History: Findings - Cardiomyopathy with Vtach & ICD, hyperthyroid, COPD, BPH, gout, psoriasis, BPH Objective Active Medications: Haloperidol Lactate (Haldol Inj Iv/Im*) 2 mg IV SLOW PU Q6H PRN PRN Reason: AGITATION Last Admin: 07/23/17 23:19 Dose: 2 mg Sodium Chloride (Ns 0.9% 1000 Ml*) 1,000 mls @ 125 mls/hr IV PER RATE FAY Last Admin: 07/23/17 21:05 Dose: 125 mls/hr Piperacillin Sod/Tazobactam (Sod 3.375 gm/ Sodium Chloride) 100 mls @ 25 mls/ hr IVPB Q12H FAY Last Admin: 07/23/17 21:06 Dose: 25 mls/hr Vital Signs 07/23/17 07/23/17 07/23/17 18:32 18:59 19:00 Temperature 98.2 F Pulse Rate 86 93 Respiratory 27 24 18 Rate Blood Pressure 108/52 102/54 110/62 (mmHg) O2 Sat by Pulse 94 93 Oximetry 07/23/17 07/23/17 07/23/17 19:30 19:42 20:00 Temperature 99 F Pulse Rate 90 87 Respiratory 20 20 24 Rate Blood Pressure 103/60 108/52 (mmHg) O2 Sat by Pulse 93 94 Oximetry 07/23/17 07/23/17 07/24/17 20:17 23:09 00:38 Temperature Pulse Rate 93 93 Respiratory 24 20 24 Rate Blood Pressure 102/54 109/48 (mmHg) O2 Sat by Pulse 93 97 Oximetry 07/24/17 07/24/17 07/24/17 01:13 01:38 03:35 Temperature 96.8 F Pulse Rate 78 Respiratory 18 24 Rate Blood Pressure 99/50 (mmHg) O2 Sat by Pulse 99 Oximetry Oxygen Devices in Use Now: Nasal Cannula Appearance: Alert but poor attention span. Somwewhat restless. Very tachypneic , labored breathing. Eyes: No Scleral Icterus Neck: NL Appearance and Movements; NL JVP, No Thyroid Enlargement, Masses Respiratory: Symmetrical Chest Expansion and Respiratory Effort, Clear to Auscultation, Clear to Percussion Cardiovascular: NL Sounds; No Murmurs; No JVD, RRR, No Edema Skin: No Nodules or Sclerosis, - - scattered red areas on forehead. Neurological: NL Sensation - Knows the name of the facility and his age. He Result Diagrams: 07/24/17 06:19 07/24/17 06:19 Additional Lab and Data: Lab Results 07/23/17 07/23/17 07/23/17 Range/Units 16:10 16:17 16:17 WBC (3.5-10.8) 10^3/ul RBC (4.0-5.4) 10^6/ul Hgb (14.0-18.0) g/dl Hct (42-52) % MCV (80-94) fL MCH (27-31) pg MCHC (31-36) g/dl RDW (10.5-15) % Plt Count (150-450) 10^3/ul MPV (7.4-10.4) um3 Neut % (Auto) (38-83) % Lymph % (Auto) (25-47) % Loup % (Auto) (1-9) % Eos % (Auto) (0-6) % Baso % (Auto) (0-2) % Absolute Neuts (auto) (1.5-7.7) 10^3/ul Absolute Lymphs (auto) (1.0-4.8) 10^3/ul Absolute Monos (auto) (0-0.8) 10^3/ul Absolute Eos (auto) (0-0.6) 10^3/ul Absolute Basos (auto) (0-0.2) 10^3/ul Absolute Nucleated RBC 10^3/ul Nucleated RBC % INR (Anticoag Therapy) (0.89-1.11) Patient Temperature Not Reportable ABG pH 7.45 (7.35-7.45) ABG pH (Temp Correct) Not Reportable ABG pCO2 51 H (35-45) mmHg ABG pCO2 (Temp Corrct Not Reportable ABG pO2 95 (80-100) mmHg ABG pO2 (Temp Correct Not Reportable ABG HCO3 33.0 H (19-31) mmol/L ABG O2 Saturation 98.9 H (95-98) % ABG Base Excess 10.3 H (-2.0-2.0) Respiration Rate Not Reportable O2 Delivery Device N/c Ventilator Type Not Reportable Vent Mode Not Reportable FiO2 Not Reportable Inspiratory Time Not Reportable PEEP Not Reportable Pressure Support Not Reportable Pressure Control Not Reportable EPAP Not Reportable IPAP Not Reportable BiPAP Not Reportable Sodium 137 (133-145) mmol/L Potassium 4.1 (3.5-5.0) mmol/L Chloride 95 L (101-111) mmol/L Carbon Dioxide 33 H (22-32) mmol/L Anion Gap 9 (2-11) mmol/L BUN 124 H (6-24) mg/dL Creatinine 4.18 H (0.67-1.17) mg/dL Est GFR ( Amer) 17.8 (>60) Est GFR (Non-Af Amer) 13.9 (>60) BUN/Creatinine Ratio 29.7 H (8-20) Glucose 139 H (70-100) mg/dL Lactic Acid (0.5-2.0) mmol/L Calcium 7.8 L (8.6-10.3) mg/dL Magnesium 2.2 (1.9-2.7) mg/dL Total Bilirubin 1.20 H (0.2-1.0) mg/dL AST 21 (13-39) U/L ALT 23 (7-52) U/L Alkaline Phosphatase 51 (34-104) U/L Ammonia 41 (16-53) mol/L Total Creatine Kinase 146 (10-223) U/L Troponin I 0.19 H* (<0.04) ng/mL Total Protein 5.6 L (6.4-8.9) g/dL Albumin 2.2 L (3.2-5.2) g/dL Globulin 3.4 (2-4) g/dL Albumin/Globulin Ratio 0.6 L (1-3) TSH 6.06 H (0.34-5.60) mcIU/mL Acetaminophen < 15 mcg/mL Serum Alcohol < 10 (<10) mg/dL 07/23/17 07/23/17 07/23/17 Range/Units 16:17 16:17 16:17 WBC 15.5 H (3.5-10.8) 10^3/ul RBC 2.63 L (4.0-5.4) 10^6/ul Hgb 7.6 L (14.0-18.0) g/dl Hct 23 L (42-52) % MCV 89 (80-94) fL MCH 29 (27-31) pg MCHC 33 (31-36) g/dl RDW 16 H (10.5-15) % Plt Count 72 L D (150-450) 10^3/ul MPV 11 H (7.4-10.4) um3 Neut % (Auto) 94.7 H (38-83) % Lymph % (Auto) 2.6 L (25-47) % Loup % (Auto) 2.3 (1-9) % Eos % (Auto) 0 (0-6) % Baso % (Auto) 0.4 (0-2) % Absolute Neuts (auto) 14.7 H (1.5-7.7) 10^3/ul Absolute Lymphs (auto) 0.4 L (1.0-4.8) 10^3/ul Absolute Monos (auto) 0.4 (0-0.8) 10^3/ul Absolute Eos (auto) 0 (0-0.6) 10^3/ul Absolute Basos (auto) 0.1 (0-0.2) 10^3/ul Absolute Nucleated RBC 0 10^3/ul Nucleated RBC % 0 INR (Anticoag Therapy) 1.09 (0.89-1.11) Patient Temperature ABG pH (7.35-7.45) ABG pH (Temp Correct) ABG pCO2 (35-45) mmHg ABG pCO2 (Temp Corrct ABG pO2 (80-100) mmHg ABG pO2 (Temp Correct ABG HCO3 (19-31) mmol/L ABG O2 Saturation (95-98) % ABG Base Excess (-2.0-2.0) Respiration Rate O2 Delivery Device Ventilator Type Vent Mode FiO2 Inspiratory Time PEEP Pressure Support Pressure Control EPAP IPAP BiPAP Sodium (133-145) mmol/L Potassium (3.5-5.0) mmol/L Chloride (101-111) mmol/L Carbon Dioxide (22-32) mmol/L Anion Gap (2-11) mmol/L BUN (6-24) mg/dL Creatinine (0.67-1.17) mg/dL Est GFR ( Amer) (>60) Est GFR (Non-Af Amer) (>60) BUN/Creatinine Ratio (8-20) Glucose (70-100) mg/dL Lactic Acid 1.0 (0.5-2.0) mmol/L Calcium (8.6-10.3) mg/dL Magnesium (1.9-2.7) mg/dL Total Bilirubin (0.2-1.0) mg/dL AST (13-39) U/L ALT (7-52) U/L Alkaline Phosphatase (34-104) U/L Ammonia (16-53) mol/L Total Creatine Kinase (10-223) U/L Troponin I (<0.04) ng/mL Total Protein (6.4-8.9) g/dL Albumin (3.2-5.2) g/dL Globulin (2-4) g/dL Albumin/Globulin Ratio (1-3) TSH (0.34-5.60) mcIU/mL Acetaminophen mcg/mL Serum Alcohol (<10) mg/dL Microbiology and Other Data: Microbiology 07/23/17 21:10 Nasal Screen MRSA (PCR)(LISA) - Final Nasal Mrsa Negative Assess/Plan/Problems-Billing Assessment: - Patient Problems (1) Cardiomyopathy Current Visit: Yes Status: Acute Code(s): I42.9 - CARDIOMYOPATHY, UNSPECIFIED SNOMED Code(s): 68546288 Comment: I suspect low cardiac output is comprimising his renal function. Reduce IV fluids as they may increase his dyspnea. (2) Anemia, chronic disease Current Visit: No Status: Acute Code(s): D63.8 - ANEMIA IN OTHER CHRONIC DISEASES CLASSIFIED ELSEWHERE SNOMED Code(s): 681632066 Comment: Related to renal failure, stable. (3) MARIA VICTORIA (acute kidney injury) Current Visit: Yes Status: Acute Code(s): N17.9 - ACUTE KIDNEY FAILURE, UNSPECIFIED SNOMED Code(s): 37128372 Comment: BUN and creatinine both increased further on 07/24/17. May be due to low cardiac output. Uremic metabolic encephalopathy is present. (4) Aspiration into respiratory tract Current Visit: Yes Status: Acute Code(s): T17.908A - UNSP FB IN RESP TRACT, PART UNSP CAUSING OTH INJURY, INIT SNOMED Code(s): 344865097 Comment: Clinical picture could be compatible with aspiration related to his encephalopathy. NPO ordered. His clinical lung exam is improved after being NPO overnight, no longer has mosit noisy respirations. (5) Hyperthyroidism Current Visit: No Status: Acute Code(s): E05.90 - THYROTOXICOSIS, UNSP WITHOUT THYROTOXIC CRISIS OR STORM SNOMED Code(s): 99866154 Comment: Hold methimazole, TSH still elevated. (6) End of life care Current Visit: Yes Status: Acute Code(s): Z51.5 - ENCOUNTER FOR PALLIATIVE CARE SNOMED Code(s): 733179946 Comment: Message left for Brooklyn Aj to call me back on 07/24/17. Not clear if his labored breathing is due to low cardiac output, uremia, sepsis.
[2017-07-24] MEDS ORDERED: NS 0.9% 1000 ML* 1,000 ML IV SCH (08:14)
[2017-07-24 08:54] VITALS: BP 96/52
[2017-07-24] MEDS ORDERED: Morphine INJ* 2 MG/ML 1 ML SYRINGE (TWO MG - NEW SYRINGE VERSION) IV PRN (10:04)
--- NOTE | 2017-07-24 10:21 | PN ---
Progress Note - Progress Note Date of Service: 07/24/17 Note: Time spent on discharge 45 minutes.
[2017-07-24] MEDS ORDERED: Atropine 1% (ORAL/SL)* 15 ML BTL SL PRN (11:13)
[2017-07-24] MEDS ORDERED: LORazepam INJ* 2 MG/ML 1 ML VIAL IV PUSH PRN (11:14)
[2017-07-24] MEDS ORDERED: Morphine ORAL CONCENTRATE* 5 MG/0.25 ML ORAL.SYRIN SL PRN (11:14)
--- NOTE | 2017-07-24 19:40 | CONS ---
CC: Javi Haines MD; Denver Banks MD* PALLIATIVE CARE CONSULTATION: DATE OF CONSULT: 07/24/17 PRIMARY CARE PHYSICIAN: Javi Haines MD REFERRING PHYSICIAN: Denver Banks MD HOSPITAL COURSE: This is a 77-year-old male with a past medical history of ischemic cardiomyopathy with ejection fraction 20% to 25%, CKD, and COPD, who presented to the emergency room on 07/23/17 from [facility] due to altered mental status. The patient was admitted from 06/22/17 to 06/27/17 for constipation, who was sent home. He was sent to [facility] on 06/27/17 for rehab. On admission here, the patient was found to be hypothermic with somnolence, worsening renal failure, and volume overloaded. On admission, the hospitalist spoke with healthcare proxy, Brooklyn Rocha, regarding comfort measures. She reached out to the patient's sister, who wanted to do a trial of IV fluids, antibiotics as the thought was that maybe he has underlying aspiration pneumonia contributing to his decline. The patient was started on IV fluids and antibiotics. His respiratory status continued to decline with worsening renal failure. We spoke again to the healthcare proxy, Brooklyn Rocha, regarding no significant clinical improvement and in fact worsening deterioration of his clinical status, and at that time, she decided that she wanted to make him comfortable. She was a friend of his for many years , his neighbor as well. He has been a longstanding outstanding organ player. On my encounter, the patient does awake to voice, but unable to answer any questions appropriately or follow any commands. Unable to obtain review of systems. PAST MEDICAL HISTORY: 1. Chronic systolic congestive heart failure with ejection fraction of 20% to 25%, last known in 2014. 2. CKD, stage 3. 3. COPD. 4. Hypothyroidism. 5. History of V-tach, with ICD in place. 6. BPH. 7. Gout. 8. ROBLES. 9. Psoriasis. 10. Cervical spondylosis. 11. History of squamous cell carcinoma. 12. Hypertension. 13. Hiatal hernia. 14. Depression. INPATIENT MEDICATIONS: 1. Atropine 2 drops sublingual q.2 hours as needed. 2. Ativan 0.5 mg IV q.1 hour as needed for agitation and anxiety. 3. Morphine 1 mg IV q.1 hour as needed. 4. Morphine oral concentrate 2.5 mg sublingual q.1 hour as needed. ALLERGIES: OXYCODONE, HYDRALAZINE, ISOSORBIDE, PREDNISONE, STATIN, BACTRIM, CLINDAMYCIN, ERYTHROMYCIN, ATORVASTATIN, and KEFLEX. FAMILY HISTORY: Unknown due to the patient's somnolence. SOCIAL HISTORY: The patient has been at [facility] for the past month. Quit smoking in 2010, smoked for over 30 years. No history of alcohol or illicit drug use. His healthcare proxy is his friend, Brooklyn Rocha , [phone]. Code status, initially full code, now DNR/DNI, comfort measures only and this was confirmed with the healthcare proxy and Dr. Banks. REVIEW OF SYSTEMS: Unable to obtain due to the patient's somnolence and altered mental status. PHYSICAL EXAM: Vitals: Temp 94.8, pulse rate 82, respiratory rate 24, oxygen saturation 90% on 5 L, blood pressure is 96/52. General: The patient with increased work of breathing. He is cyanotic, diaphoretic, and cool. HEENT: Head: Normocephalic. Oropharynx, mucous membranes moist. Pupils are equal and sluggish, anicteric. Cardiac: Regular rate and rhythm. Soft systolic murmur heard throughout. Respiratory: Diminished rhonchorous breath sounds bilaterally. Abdomen: Soft, nontender, and nondistended. Extremities: Cool and clammy, diaphoretic, distal pulses. Neurologic: The patient does awake to voice, but unable to have any meaningful interaction or follow any commands. LABORATORY DATA: White count 18, hemoglobin 8, hematocrit 25, platelets 64. Sodium 139, potassium 4.2, chloride 99, bicarb 31, BUN 29, creatinine 4.24. Troponin 0.14. ASSESSMENT AND PLAN: This is a 77-year-old male with a past medical history of ischemic cardiomyopathy; chronic kidney disease, stage 3, who presents to [facility] from [facility] with altered mental status, found to have worsening renal failure and volume overloaded. The patient is eligible for hospice and is not expected to survive to discharge with the principal diagnosis of hypoxic respiratory failure and acute decompensated congestive heart failure with secondary diagnosis of acute on chronic renal failure. Everyone is in agreement that the patient should be on comfort measures only including his health care proxy. He is now more comfortable with the morphine, atropine as needed, and Ativan as well. MOLST form confirmed DNR/DNI, comfort measures only. Thank you for this consultation. I will follow along with you. PATIENT TIME: Greater than 90 minutes was spent doing this consultation, more than half the time was spent in direct patient contact. [id number]/[facility] #: [id number] SADAF
--- NOTE | 2017-07-26 01:18 | DS ---
CC: Dr. Haines DISCHARGE LISA: DATE OF ADMISSION: DATE OF DISCHARGE: 07/24/17 HOSPITAL COURSE: This 77-year-old man who was transferred from the shelter facility because of altered mental status. He was able to give some history, but was quite weak, lethargic and most ly disoriented. He was found to have uremic encephalopathy and acute kidney injury. I suspect this was on the basis of low cardiac output. He has known severe cardiomyopathy. I could not rule out sepsis. He did get a dose of antibiotics. His condition rapidly deteriorated. It was quite critical to begin with. His healthcare proxy came and visited him twice. She agreed to comfort measures. He was given morphine to keep him comfortable. I note his extremities were a ll very cold and clammy. He was very vasoconstricted. He became more obtunded and quietly in bed. FINAL DIAGNOSES: 1. Cardiomyopathy. 2. Acute renal failure. [id number]/[facility] #: [id number]
== END 2017-07-24 16:00 | disposition expired | DRG 871 ==
LOC: ED 15:18 → MED 18:18
PROVIDERS: ADMIT Internal Medicine; ATTEND Pediatrics
DX: A41.9 Sepsis, unspecified organism (principal); G93.49 Other encephalopathy; J96.91 Respiratory failure, unspecified with hypoxia; I47.2 Ventricular tachycardia; N17.9 Acute kidney failure, unspecified; I50.23 Acute on chronic systolic (congestive) heart failure; N18.3 Chronic kidney disease, stage 3 (moderate); T17.908A Unspecified foreign body in respiratory tract, part unspecified causing other injury, initial encounter; D63.8 Anemia in other chronic diseases classified elsewhere; I50.22 Chronic systolic (congestive) heart failure; I13.0 Hypertensive heart and chronic kidney disease with heart failure and stage 1 through stage 4 chronic kidney disease, or unspecified chronic kidney disease; I11.0 Hypertensive heart disease with heart failure; I50.9 Heart failure, unspecified; Z51.5 Encounter for palliative care; Z88.5 Allergy status to narcotic agent; Z88.1 Allergy status to other antibiotic agents; Z88.2 Allergy status to sulfonamides; Z82.49 Family history of ischemic heart disease and other diseases of the circulatory system; Z80.0 Family history of malignant neoplasm of digestive organs; Z82.5 Family history of asthma and other chronic lower respiratory diseases; Z95.810 Presence of automatic (implantable) cardiac defibrillator; E05.90 Thyrotoxicosis, unspecified without thyrotoxic crisis or storm; J44.9 Chronic obstructive pulmonary disease, unspecified; N40.0 Benign prostatic hyperplasia without lower urinary tract symptoms; M10.9 Gout, unspecified; L40.9 Psoriasis, unspecified; X58.XXXA Exposure to other specified factors, initial encounter; Y92.9 Unspecified place or not applicable; R73.03 Prediabetes; G47.30 Sleep apnea, unspecified; M19.90 Unspecified osteoarthritis, unspecified site; K44.9 Diaphragmatic hernia without obstruction or gangrene; M47.9 Spondylosis, unspecified; F41.9 Anxiety disorder, unspecified; F32.9 Major depressive disorder, single episode, unspecified; Z85.828 Personal history of other malignant neoplasm of skin; Z83.3 Family history of diabetes mellitus; Z87.891 Personal history of nicotine dependence; I25.5 Ischemic cardiomyopathy; G47.33 Obstructive sleep apnea (adult) (pediatric); Z66 Do not resuscitate
CPT/HCPCS: 36415; 70450; 71010; 80048; 80053; 80320; 80329; 82140; 82550; 82803; 83605; 83735; 84134; 84443; 84484; 85025; 85610; 87040; 87077; 87150; 87186; 87205; 87641; 93005; G0480; J1630; J2060; J2270; J2543